=== PATIENT | female | born 1935 ===

== ENCOUNTER 2018-06-26 04:24 | Inpatient (IN) | payer MEDICARE, MEDICAID ==
--- NOTE | 2018-06-26 04:36 | C.PDOC ---
History Of Present Illness As per daughter, pt was at baseline around 2AM. Pt is with severe dementia, nonverbal. Daugther heard a scream captain/check airman, and found the patient, shaking"foaming at the mouth and her arms crossed. No signs of trauma, no incontinence. There was also a question of a left facial droop. Unableto obtain any history from pt due to her condition(baseline) Time Seen by Provider: 06/26/18 04:36 History Per: Family History/Exam Limitations: clinical condition Onset/Duration Of Symptoms: Hrs (3) Current Symptoms Are (Timing): Better Severity: Mild Pain Scale Rating Of: 2 Reports Recently: Seen In ED, Treated By A Physician Recent travel outside of the [place]: No Additional History Per: Family Past Medical History Reviewed: Historical Data, Nursing Documentation, Vital Signs Family History: States: No Known Family Hx Review Of Systems Review Of Systems: ROS cannot be obtained secondary to pt's inabilty to answer questions. Physical Exam - Physical Exam Appears: No Acute Distress Skin: Warm, Dry Head: Normacephalic Eye(s): bilateral: Normal Inspection Oral Mucosa: Dry Neck: Supple Chest: Symmetrical Cardiovascular: Rhythm Regular Respiratory: Rales, Rhonchi, No Wheezing Gastrointestinal/Abdominal: Soft, No Tenderness, No Distention Back: No CVA Tenderness Extremity: No Tenderness Extremity: Bilateral: Atraumatic Neurological/Psych: Other (pt with severe dementia, non verbal) Disoriented To: Person, Place, Time, Situation Gait: Unable To Assess ED Course And Treatment - Laboratory Results Result Diagrams: 06/26/18 05:37 06/26/18 05:37 ECG: Interpreted By Me, Viewed By Me ECG Rhythm: Sinus Rhythm (98), Nonspecific Changes Pulse Ox Interpretation: Normal - Radiology CXR: Interpreted by Me, Viewed By Me NIHSS Stroke Scale - Date/Time Evaluation Performed Date Performed: 06/26/18 Time Performed: 04:30 When Was NIHSS Performed: Baseline - How Severe is the Stroke Level of Consciousness: 0=Alert LOC to Questions: 0=Both comments correct (pt non verbal) LOC to commands: 2=Neither correct (demented/baselinie) Best Gaze: 0=Normal Visual: 0=No visual loss Facial: 1=Minor asymmetry Motor Arm - Left: 0=No drift Motor Arm - Right: 0=No drift Motor Leg - Left: 0=No drift Motor Leg - Right: 0=No drift Limb Ataxia: 0=Absent Sensory: 0=Normal Best Language: 3=Mute Dysarthia: 2=Severe, near unintelligible or worse (mute) Extinction & Inattention (Neglect): 0=Normal, no object Score: 8 rTPA Inclusion/Exclusion - Refusal of Treatment Patient Refused Treatment: No - Inclusion Criteria for Altepase All of the below criteria for inclusion were reviewed: Yes Patient is 18 years or Older: Yes The Clinical Diagnosis of Ischemic Stroke That is Causing a Potentially Disabl ing Neurological Deficit: No Time of Onset is Well Established to be Less Than 270 Minute Before Treatment Would Begin: Yes Risk/Benefit Discussed With Patient/Family Member Present: Yes - Exclusion Criteria for Altepase Current Intracranial Hemorrhage: No Subarachnoid hemorrhage: No Active Internal Bleeding: No Recent (within 3 months) Intracranial or Intraspinal Surgery: No Presence of intracranial conditions that may increase the risk of bleeding: Not Applicable Current Severe Uncontrolled Hypertension: No - Warning to TPA With Conditions Following Conditions Weighed Against Anticipated Benefit: Yes Condition: Advanced age with poor baseline function Disposition Discussed With DrRoberto: Harpal Washington Comment: accepted the pt onher service and took over the carea at 5:43AM Doctor Will See Patient In The: ED Counseled Patient/Family Regarding: Studies Performed, Diagnosis - Disposition Disposition: HOSPITALIZED Disposition Time: 04:36 Condition: FAIR - POA Present On Arrival: None - Clinical Impression Clinical Impression: Seizure, TIA (transient ischemic attack), Dementia Decision To Admit - Pt Status Changed To: Hospital Disposition Of: Inpatient - Admit Certification Admit to Inpatient:: After my assessment, the patient will require hospitalization for at least two midnights. This is because of the severity of symptoms shown, intensity of services needed, and/or the medical risk in this patient being treated as an outpatient. - InPatient: Physician Admission Certification: I certify that this patient requires 2 or more midnights of care for the following reason:: After my assessment, the patient will require hospitalization for at least two midnights. This is because of the severity of symptoms shown, intensity of services needed, and/or the medical risk in this patient being treated as an outpatient. - . Bed Request Type: Telemetry Admitting Physician: Harpal Washington Patient Diagnosis: Seizure, TIA (transient ischemic attack), Dementia
[2018-06-26 04:38] VITALS: BMI 22.4
[2018-06-26] MEDS ORDERED: Iodixanol 320 mg/ml 150 ml Bottle IV ONE (05:06)
[2018-06-26 05:44] LABS: BASO % 0.2 % (0.0-2.0); EOS # 0.1 K/uL (0.0-0.7); EOS % 0.9 % (0.0-4.0); HEMOGLOBIN 12.8 g/dL (11.0-16.0); LYMPH # 0.9 K/uL (1.0-4.3); LYMPH % 9.5 % (20.0-40.0); MEAN CORPUSCULAR HEMOGLOBIN 33.7 pg (27.0-31.0); MEAN PLATELET VOLUME 8.1 fL (7.2-11.7); MONO # 0.2 K/uL (0.0-0.8); MONO % 2.6 % (0.0-10.0); NEUT # 8.1 K/uL (1.8-7.0); NEUT % 86.8 % (50.0-75.0); PLATELET COUNT 234 K/uL (130-400); RBC 3.81 Mil/uL (3.80-5.20); RED CELL DISTRIBUTION WIDTH 12.3 % (11.5-14.5); WHITE BLOOD COUNT 9.3 K/uL (4.8-10.8)
[2018-06-26 05:50] LABS: PARTIAL THROMBOPLASTIN TIME 22.9 SECONDS (21-34); PROTHROMBIN TIME 10.9 SECONDS (9.7-12.2)
[2018-06-26 05:55] LABS: ALB/GLOB RATIO 1.2 (1.0-2.1); ALBUMIN 3.5 g/dL (3.5-5.0); BLOOD UREA NITROGEN 9 mg/dL (7-17); CALCIUM 8.9 mg/dl (8.6-10.4); GFR NON-AFRICAN AMERICAN > 60; HDL CHOLESTEROL 43 mg/dL (30-70)
[2018-06-26 06:06] LABS: LDL CHOLESTEROL 56 mg/dL (0-129)
[2018-06-26 06:13] LABS: ALT/SGPT 17 U/L (9-52); AST/SGOT 23 U/L (14-36)
[2018-06-26] MEDS ORDERED: Glucagon Recombinant 1 mg Inj IM PRN (07:12)
[2018-06-26] MEDS ORDERED: Dextrose 50% SYRINGE Inj (50 ml) IVP PRN (07:12)
--- NOTE | 2018-06-26 07:18 | CP.PCM.HP ---
<Yosvany Lehman - Last Filed: 06/26/18 16:07> History of Present Illness - History of Present Illness History of Present Illness: Medicine History and Physical for Hospitalist Service, Dr. Fowler 82 y o female with PMhx DM2, HTN, HLD, dementia, who presented to the ED [facility] for stroke-like symptoms. Pt is a poor historian 2/2 dementia and non-verbal status, so much of history was provided by pts daughter over telephone conversation. Pts daughter states that last known baseline status of patient was at 2:00 am this morning. States she awoke from sleep after hearing pt scream, went to pts bedside and found pt foaming at mouth, blood in mouth 2/2 possibly biting her tongue, and demonstrating twisting-like movements with her body. Pts daughter also noticed at time that pt had new-onset L-sided facial droop. Pts daughter immediately called 911 and pt was thus brought to the ED. Denies hx of this ever occuring before. Pt has been living at home with daughter for past 3 years. Denies any recent hospitalizations or falls. Denies recent URI symptoms or pt being sick recently with a cold. Pt is usually helped by home health aide during the day until pts daughter comes home from work at night. Pt is unable to ambulate at baseline and needs assistance ambulating around home. P t also has hx of urinary incontinence and wears diapers. Pts daughter denies pt c/o chest pain, sob, n/v/d/c, abd pain, or other symptoms. Denies foul-smelling urine or stool. Pt is also only able to eat puree-like foods at home as per pts daughter, states she sometimes gets food stuck in her cheeks. PMhx: as noted above PSurgHx: PARISH BSO (performed many years ago as per pt's daughter 2/2 uterine cancer) Allergies: NKDA Home meds: reviewed in MAR Fam hx: significant for MD and stroke Soc hx: Denies smoking, EtOH or illicit drug use. Lives at home with daughter and . is currently a patient at [facility] Has home health aide with her during the day until pt's daughter comes home from work at 6:00 pm. Pharmacy: Mail-order PMD: Dr. Lopez Present on Admission - Present on Admission Any Indicators Present on Admission: No History of DVT/PE: No History of Uncontrolled Diabetes: No Urinary Catheter: No Decubitus Ulcer Present: No Review of Systems - Review of Systems Systems not reviewed;Unavailable: Dementia Past Patient History - Past Social History Smoking Status: Never Smoked - CARDIAC Hx Hypercholesterolemia: Yes Hx Hypertension: Yes - NEUROLOGICAL Hx Dementia: Yes - ENDOCRINE/METABOLIC Hx Diabetes Mellitus Type 2: Yes - PSYCHIATRIC Hx Substance Use: No - ANESTHESIA Hx Anesthesia: No Meds Allergies/Adverse Reactions: Allergies Allergy/AdvReac Type Severity Reaction Status Date / Time No Known Allergies Allergy Verified 06/26/18 04:38 Physical Exam - Constitutional Appears: Non-toxic, No Acute Distress, Confused - Head Exam Head Exam: ATRAUMATIC, NORMOCEPHALIC - Eye Exam Eye Exam: EOMI, Normal appearance, PERRL - ENT Exam ENT Exam: Mucous Membranes Moist, Normal Oropharynx - Respiratory Exam Respiratory Exam: Clear to Auscultation Bilateral, NORMAL BREATHING PATTERN. absent: Rales, Rhonchi, Wheezes - Cardiovascular Exam Cardiovascular Exam: +S1, +S2. absent: Gallop, Rubs, Systolic Murmur - GI/Abdominal Exam GI & Abdominal Exam: Normal Bowel Sounds, Soft. absent: Distended, Organomegaly, Tenderness - Extremities Exam Extremities exam: Positive for: normal capillary refill, normal inspection, pedal pulses present. Negative for: joint swelling, pedal edema - Neurological Exam Neurological exam: Alert, Altered Additional comments: Unable to perform full neuro exam due to pt being non-cooperative; AAOx1 - Skin Skin Exam: Dry, Intact, Warm Results - Vital Signs Recent Vital Signs: Last Vital Signs Temp 97.4 F L 06/26/18 06:40 Pulse 92 H 06/26/18 06:40 Resp 20 06/26/18 06:40 BP 164/74 H 06/26/18 06:40 Pulse Ox 97 06/26/18 06:40 - Labs Result Diagrams: 06/26/18 05:37 06/26/18 05:37 Labs: Laboratory Results - last 24 hr 06/26/18 06/26/18 06/26/18 04:31 05:37 05:37 WBC 9.3 RBC 3.81 Hgb 12.8 Hct 38.8 MCV 102.0 H D MCH 33.7 H MCHC 33.0 RDW 12.3 Plt Count 234 MPV 8.1 Neut % (Auto) 86.8 H Lymph % (Auto) 9.5 L [place] % (Auto) 2.6 Eos % (Auto) 0.9 Baso % (Auto) 0.2 Neut # (Auto) 8.1 H Lymph # (Auto) 0.9 L [place] # (Auto) 0.2 Eos # (Auto) 0.1 Baso # (Auto) 0.0 PT 10.9 INR 1.0 APTT 22.9 Sodium Potassium Chloride Carbon Dioxide Anion Gap BUN Creatinine Est GFR ( Amer) Est GFR (Non-Af Amer) POC Glucose (mg/dL) 241 H Random Glucose Hemoglobin A1c Calcium Total Bilirubin AST ALT Alkaline Phosphatase Troponin I Total Protein Albumin Globulin Albumin/Globulin Ratio Triglycerides Cholesterol LDL Cholesterol Direct HDL Cholesterol 06/26/18 06/26/18 05:37 05:40 WBC RBC Hgb Hct MCV MCH MCHC RDW Plt Count MPV Neut % (Auto) Lymph % (Auto) [place] % (Auto) Eos % (Auto) Baso % (Auto) Neut # (Auto) Lymph # (Auto) [place] # (Auto) Eos # (Auto) Baso # (Auto) PT INR APTT Sodium 135 Potassium 3.8 Chloride 104 Carbon Dioxide 20 L Anion Gap 14 BUN 9 Creatinine 0.5 L Est GFR ( Amer) > 60 Est GFR (Non-Af Amer) > 60 POC Glucose (mg/dL) Random Glucose 239 H D Hemoglobin A1c 6.7 H Calcium 8.9 Total Bilirubin 0.5 AST 23 ALT 17 Alkaline Phosphatase 48 Troponin I < 0.0120 Total Protein 6.4 Albumin 3.5 D Globulin 2.9 Albumin/Globulin Ratio 1.2 Triglycerides 77 D Cholesterol 105 LDL Cholesterol Direct 56 HDL Cholesterol 43 Assessment & Plan - Assessment and Plan (Free Text) Assessment: 82 y o female with PMhx DM2, HTN, HLD, dementia, who presented to the ED BiB[facility]S for stroke-like symptoms. Code Stroke was called. Neurology (Dr. De) consulted. R/o stroke vs. seizure as etiology of symptoms. Plan: AMS, Code Stroke, r/o seizure -CT head: No acute intracranial hemorrhage. Chronic microvascular ischemic change. Small lacunar infarcts in the R caudate head and freya. Diffuse generalized parenchymal atrophy. -MRI brain pending -CTA head/neck: unremarkable -Echo done, f/u results -Dr. De (Neurology) consulted, recs appreciated -1 hr EEG done at bedside, f/u results -Keppra 500 mg IVPB bid -Pending TSH, T4, B12, folate, RPR -C/w statin therapy -Home BP med held on admission -ASA loading dose -Was not eligible for tPA due to being outside of window for therapy and due to age -NIHSS 8 -EKG on admission: NSR at 97 bpm, prolonged QT -Seizure, aspiration precautions Hx dementia -C/w Memantine daily -Risperidone held on admission 2/2 prolonged QT Hx HLD -C/w statin therapy -Lipid panel ordered Hx DM2 -Home med Janumet held on admission -Fingersticks achs -Hypoglycemic protocol -A1c ordered Hx HTN -BP meds held on admission -Cont to trend PPX: -DVT: Lovenox -GI: n/a -Diet: Pureed with thin liquids -Palliative Care consulted re. goals of care/POLST form, recs appreciated Contact # for Patient's daughter, Ying Lo: Pt seen, examined with, and plan discussed with Dr. Fowler, attending physician. Yosvany Lehman DO PGY-1, Director Of Officiating Pager #[phone] NIHSS Scale Date Performed: 06/26/18 Time Performed: 07:45 When Was NIHSS Performed: Reevaluation Level of Consciousness: 1=Drowsy LOC to Questions: 2=Answers neither correct LOC to commands: 2=Performs task neither correctly Best Gaze: 0=Normal Visual: 0=No visual loss Facial: 1=Minor asymmetry Motor Arm - Left: UN - Untestable; Amputation or joint fusion Motor Arm - Right: UN - Untestable; Amputation or joint fusion Motor Leg - Left: UN - Untestable; Amputation or joint fusion Motor Leg - Right: UN - Untestable; Amputation or joint fusion Limb Ataxia: UN - Untestable; Amputation or joint fusion Sensory: 0=Normal Best Language: 0=No aphasia Dysarthria: UN - Untestable; Intubation or other physical barrier Extinction & Inattention (Neglect): 0=Normal, no object Score: 6 <Hina Fowler V - Last Filed: 06/26/18 23:24> Results - Vital Signs Recent Vital Signs: Last Vital Signs Temp 978 F H 06/26/18 15:00 Pulse 80 06/26/18 22:39 Resp 18 06/26/18 15:00 BP 169/78 H 06/26/18 22:39 Pulse Ox 97 06/26/18 15:00 - Labs Result Diagrams: 06/26/18 05:37 06/26/18 05:37 Labs: Laboratory Results - last 24 hr 06/26/18 06/26/18 06/26/18 04:31 05:37 05:37 WBC 9.3 RBC 3.81 Hgb 12.8 Hct 38.8 MCV 102.0 H D MCH 33.7 H MCHC 33.0 RDW 12.3 Plt Count 234 MPV 8.1 Neut % (Auto) 86.8 H Lymph % (Auto) 9.5 L [place] % (Auto) 2.6 Eos % (Auto) 0.9 Baso % (Auto) 0.2 Neut # (Auto) 8.1 H Lymph # (Auto) 0.9 L [place] # (Auto) 0.2 Eos # (Auto) 0.1 Baso # (Auto) 0.0 Neutrophils % (Manual) 86 H Band Neutrophils % 1 Lymphocytes % (Manual) 11 L Monocytes % (Manual) 2 Platelet Estimate Normal Large Platelets Present [place] Cells Slight PT 10.9 INR 1.0 APTT 22.9 Sodium Potassium Chloride Carbon Dioxide Anion Gap BUN Creatinine Est GFR ( Amer) Est GFR (Non-Af Amer) POC Glucose (mg/dL) 241 H Random Glucose Hemoglobin A1c Calcium Total Bilirubin AST ALT Alkaline Phosphatase Troponin I Total Protein Albumin Globulin Albumin/Globulin Ratio Triglycerides Cholesterol LDL Cholesterol Direct HDL Cholesterol Vitamin B12 Folate Free T4 TSH 3rd Generation RPR Blood Type Antibody Screen 06/26/18 06/26/18 06/26/18 05:37 05:37 05:40 WBC RBC Hgb Hct MCV MCH MCHC RDW Plt Count MPV Neut % (Auto) Lymph % (Auto) [place] % (Auto) Eos % (Auto) Baso % (Auto) Neut # (Auto) Lymph # (Auto) [place] # (Auto) Eos # (Auto) Baso # (Auto) Neutrophils % (Manual) Band Neutrophils % Lymphocytes % (Manual) Monocytes % (Manual) Platelet Estimate Large Platelets [place] Cells PT INR APTT Sodium 135 Potassium 3.8 Chloride 104 Carbon Dioxide 20 L Anion Gap 14 BUN 9 Creatinine 0.5 L Est GFR ( Amer) > 60 Est GFR (Non-Af Amer) > 60 POC Glucose (mg/dL) Random Glucose 239 H D Hemoglobin A1c 6.7 H Calcium 8.9 Total Bilirubin 0.5 AST 23 ALT 17 Alkaline Phosphatase 48 Troponin I < 0.0120 Total Protein 6.4 Albumin 3.5 D Globulin 2.9 Albumin/Globulin Ratio 1.2 Triglycerides 77 D Cholesterol 105 LDL Cholesterol Direct 56 HDL Cholesterol 43 Vitamin B12 Folate Free T4 TSH 3rd Generation RPR Blood Type A NEGATIVE Antibody Screen Negative 06/26/18 06/26/18 06/26/18 09:28 11:39 13:50 WBC RBC Hgb Hct MCV MCH MCHC RDW Plt Count MPV Neut % (Auto) Lymph % (Auto) [place] % (Auto) Eos % (Auto) Baso % (Auto) Neut # (Auto) Lymph # (Auto) [place] # (Auto) Eos # (Auto) Baso # (Auto) Neutrophils % (Manual) Band Neutrophils % Lymphocytes % (Manual) Monocytes % (Manual) Platelet Estimate Large Platelets Jose Antonio Cells PT INR APTT Sodium Potassium Chloride Carbon Dioxide Anion Gap BUN Creatinine Est GFR ( Amer) Est GFR (Non-Af Amer) POC Glucose (mg/dL) 146 H 131 H Random Glucose Hemoglobin A1c 6.7 H Calcium Total Bilirubin AST ALT Alkaline Phosphatase Troponin I Total Protein Albumin Globulin Albumin/Globulin Ratio Triglycerides Cholesterol LDL Cholesterol Direct HDL Cholesterol Vitamin B12 Folate Free T4 TSH 3rd Generation RPR Blood Type Antibody Screen 06/26/18 06/26/18 06/26/18 13:50 13:50 13:50 WBC RBC Hgb Hct MCV MCH MCHC RDW Plt Count MPV Neut % (Auto) Lymph % (Auto) [place] % (Auto) Eos % (Auto) Baso % (Auto) Neut # (Auto) Lymph # (Auto) [place] # (Auto) Eos # (Auto) Baso # (Auto) Neutrophils % (Manual) Band Neutrophils % Lymphocytes % (Manual) Monocytes % (Manual) Platelet Estimate Large Platelets Jose Antonio Cells PT INR APTT Sodium Potassium Chloride Carbon Dioxide Anion Gap BUN Creatinine Est GFR ( Amer) Est GFR (Non-Af Amer) POC Glucose (mg/dL) Random Glucose Hemoglobin A1c Calcium Total Bilirubin AST ALT Alkaline Phosphatase Troponin I Total Protein Albumin Globulin Albumin/Globulin Ratio Triglycerides Cholesterol LDL Cholesterol Direct HDL Cholesterol Vitamin B12 541 Folate 17.7 Free T4 1.06 TSH 3rd Generation 1.31 RPR Nonreactive Blood Type Antibody Screen Attending/Attestation - Attestation I have personally seen and examined this patient.: Yes I have fully participated in the care of the patient.: Yes I have reviewed all pertinent clinical information: Yes Notes (Text): Patient seen, examined and case discussed with medical device sales representative. Unable to history from patient given clinical condition. Resident has spoken with the daughter over the phone to ilict history. Daughter is the primary caregiver for the patient and her . Patient at home usually with daily caregiver from 9-5 with daughter takes over. per ED triage, 2am, noted patient was foaming at the mouth with associated body movements. Per daughter, patient is nonverbal at baseline, and bedbound. Noted to also be urine incontinent. Patient does speak a few words and needs assistance to each. Patient has had severe dementia, since diagnoses about 3 years ago. 1) New onset Seizure History of Dementia Assessment/Plan * Code stroke 06/26/18 * Neurology Dr. De on board help appreciated * CT head (06/26/18): No acute intracranial hemorrhage. Chronic microvascular ischemic change. Small lacunar infarcts in the R caudate head and freya. Diff use generalized parenchymal atrophy.- * MRI brain (06/26/18): pending; noted discussed with nursing staff, patient agitated requires some sedation given Ativan0.5mg IV X1 * CTA head/neck (06/26/18): unremarkable * Echo done, f/u results * Ordered for 1 hr EEG done; completed in EEG lab today * Per neurology, started Keppra 500 mg IVPB bid * Pending TSH, T4, B12, folate, RPR * C/w statin therapy * Home BP med held on admission; will monitor for 24 hours; prior to restart BP medications * ASA loading dose * Per ED note: Was not eligible for tPA due to being outside of window for therapy and due to age * Neurochecks * Seizure precautions * Aspiration precautions * ASA 300mg GA given * NS 100cc/hr 2) Hx dementia Assessment/Plan * c/w with Memantine * held Respirdal given prolonged QT 3) Hx HLD Assessment/Plan * C/w statin therapy * Lipid panel ordered 4) Hx DM2 * Home med Janumet held on admission * Fingersticks achs * Hypoglycemic protocol * A1c ordered 5) Hx HTN * BP meds held on admission * Cont to trend 6) PPX: * DVT: Lovenox 40mg subq dailu * GI: n/a * Swallow eval; npo given facial droop; recommended for Pureed with thin liquids * Palliative Care consulted re. goals of care/POLST form, recs appreciated * Please note patient's is also admitted; Patient's daughter Ying Lo:
--- NOTE | 2018-06-26 07:53 | CT ---
Date of service: 06/26/2018 PROCEDURE: CT HEAD WITHOUT CONTRAST. HISTORY: Code Stroke COMPARISON: None available. TECHNIQUE: Axial computed tomography images were obtained through the head/brain without intravenous contrast. Radiation dose: Total exam DLP = 924.1 mGy-cm. This CT exam was performed using one or more of the following dose reduction techniques: Automated exposure control, adjustment of the mA and/or kV according to patient size, and/or use of iterative reconstruction technique. FINDINGS: HEMORRHAGE: No intracranial hemorrhage. BRAIN: No mass effect or edema. Scattered focal lucencies in the subcortical and periventricular white matter suggestive for chronic microvascular ischemic change. Diffuse generalized parenchymal atrophy. Right caudate head lacunar infarct. Small hypodensity in the freya which may represent a small lacunar infarct. VENTRICLES: Unremarkable. No hydrocephalus. CALVARIUM: Unremarkable. Chronic deformity of the left nasal bone. PARANASAL SINUSES: Unremarkable as visualized. No significant inflammatory changes. MASTOID AIR CELLS: Unremarkable as visualized. No inflammatory changes. OTHER FINDINGS: Intracranial arterial calcifications. Fullness in the intrasellar region, nonspecific. Clinical correlation. IMPRESSION: No acute intracranial hemorrhage. Chronic microvascular ischemic change. Small lacunar infarcts in the right caudate head and freya. Diffuse generalized parenchymal atrophy. If symptoms persists, consider correlation with MRI. A preliminary report was generated at 4:57 a.m. on 06/26/[address] Hawa Napoles from [facility].
[2018-06-26 08:32] LABS: BANDS 1 % (0-2); LYMPHOCYTE 11 % (20-40); MONOCYTE 2 % (0-10); NEUTROPHIL 86 % (50-75); PLATELET ESTIMATE NORMAL (NORMAL); TOTAL CELLS COUNTED 100
[2018-06-26 08:33] LABS: BURR CELLS SLIGHT; LARGE PLATELETS PRESENT
[2018-06-26] MEDS ORDERED: levETIRAcetam 1,000 MG in Sodium Chloride 0.9% 100 ML IVPB ONE (09:00)
[2018-06-26] MEDS: Sodium Chloride 0.9% 1,000 ML IV SCH ×2 (09:19→16:08)
--- NOTE | 2018-06-26 10:26 | RAD ---
Date of service: 06/26/2018 HISTORY: Code Stroke COMPARISON: No prior. FINDINGS: LUNGS: Hyperinflation suggestive for COPD and or emphysematous changes. Right upper lobe granulomatous changes. Small nodular density in the right suprahilar region likely represents vessel on end. PLEURA: No significant pleural effusion identified, no pneumothorax apparent. CARDIOVASCULAR: Atherosclerotic calcification at the aortic knob. Tortuous ectatic aorta. Normal cardiac size. OSSEOUS STRUCTURES: Degenerative changes in the spine and shoulders. VISUALIZED UPPER ABDOMEN: Normal. OTHER FINDINGS: None. IMPRESSION: Hyperinflation suggestive for COPD and or emphysematous changes. Right upper lobe granulomatous changes. Small nodular density in the right suprahilar region likely represents vessel on end.
[2018-06-26] MEDS: levETIRAcetam 500 MG in Sodium Chloride 0.9% 100 ML IVPB SCH ×2 (11:46→21:16)
[2018-06-26] MEDS: Enoxaparin 40 mg Syringe SC SCH (11:50)
--- NOTE | 2018-06-26 12:20 | CT ---
Date of service: 06/26/2018 PROCEDURE: CT Angiography of the Brain. HISTORY: ? facial droop COMPARISON: None available. TECHNIQUE: CT angiography of the intracranial arteries was performed. Coronal and sagittal maximum intensity projection reformated images were generated. Radiation dose: Total exam DLP = 433.85 mGy-cm. This CT exam was performed using one or more of the following dose reduction techniques: Automated exposure control, adjustment of the mA and/or kV according to patient size, and/or use of iterative reconstruction technique. FINDINGS: INTERNAL CEREBRAL ARTERIES: Unremarkable. The skull base, petrous, cavernous and supraclinoid segments are bilaterally widely patent. ANTERIOR CEREBRAL ARTERIES: Unremarkable. A1 and A2 segments are widely patent. Smaller distal branches unremarkable, as visualized. MIDDLE CEREBRAL ARTERIES: Unremarkable. M1 and M2 segments are widely patent. Perisylvian branches grossly symmetric. POSTERIOR CIRCULATION: Basilar Artery: Unremarkable. Distal Vertebral Arteries: Unremarkable. Posterior Cerebral Arteries: Unremarkable. Posterior Inferior Cerebellar Arteries: Unremarkable. ANEURYSM/ VASCULAR MALFORMATIONS: None. OTHER FINDINGS: None. IMPRESSION: Unremarkable CT Angiography of the Brain. Date of service: 06/26/2018 PROCEDURE: CT Angiography of the neck with contrast HISTORY: ? facial droop COMPARISON: None. TECHNIQUE: Contiguous axial images of the neck were obtained from the level of the skull-base to the superior mediastinum in the arteriographic phase of enhancement. Coronal and sagittal reformats or also generated. IV contrast dose: Radiation dose: Total exam DLP = 433.85 mGy-cm. This CT exam was performed using one or more of the following dose reduction techniques: Automated exposure control, adjustment of the mA and/or kV according to patient size, and/or use of iterative reconstruction technique. FINDINGS: RIGHT CAROTID ARTERIES: Common Carotid Artery: Normal. Carotid Bifurcation: Normal. Internal Carotid Artery:Mild plaque formation. External Carotid Artery (proximal branches): Normal. LEFT CAROTID ARTERIES: Common Carotid Artery: Normal. Carotid Bifurcation: Normal. Internal Carotid Artery:Mild plaque formation. External Carotid Artery (proximal branches): Normal. VERTEBRAL ARTERIES: Right Vertebral Artery: Normal. Left Vertebral Artery: Normal. OTHER FINDINGS: no aortic atherosclerotic calcification or mural plaque present. IMPRESSION: No high-grade stenosis.
--- NOTE | 2018-06-26 14:15 | CP.PCM.PCO ---
Physician Communication Note - Physician Communication Note Physician Communication Note: Family meeting at 8 am tomorrow
[2018-06-26 15:30] LABS: FOLATE 17.7 ng/mL
--- NOTE | 2018-06-26 22:33 | CP.PCM.CON ---
History of Present Illness - History of Present Illness History of Present Illness: Neurology consult dictated. MIss Kenyon is an 82 yr old woman who most likely had a seizure. She has dementia which is severe, and will need AED. Start IV depakote at 1000 mg iV now and 500 mg bid. EEG Thank you Dr. mccartney Neurology #[id number] number Past Patient History - Past Medical History & Family History Past Medical History?: Yes - Past Social History Smoking Status: Never Smoked - CARDIAC Hx Hypercholesterolemia: Yes Hx Hypertension: Yes - NEUROLOGICAL Hx Dementia: Yes - ENDOCRINE/METABOLIC Hx Diabetes Mellitus Type 2: Yes - MUSCULOSKELETAL/RHEUMATOLOGICAL Hx Falls: No - PSYCHIATRIC Hx Substance Use: No - ANESTHESIA Hx Anesthesia: No Meds Allergies/Adverse Reactions: Allergies Allergy/AdvReac Type Severity Reaction Status Date / Time No Known Allergies Allergy Verified 06/26/18 04:38 - Medications Medications: Current Medications Aspirin (Aspirin Chewable) 81 mg PO DAILY KATHLEEN Dextrose (Dextrose 50% Inj) 0 ml IVP .STAT PRN; Protocol PRN Reason: Hypoglycemia Protocol Dextrose (Glutose 15) 0 gm PO .ONCE PRN; Protocol PRN Reason: Hypoglycemia Protocol Enoxaparin Sodium (Lovenox) 40 mg SC DAILY [facility] Last Admin: 06/26/18 11:50 Dose: 40 mg Glucagon (Glucagen Diagnostic Kit) 0 mg IM .STAT PRN; Protocol PRN Reason: Hypoglycemia Protocol Sodium Chloride (Sodium Chloride 0.9%) 1,000 mls @ 100 mls/hr IV .Q10H [facility] Last Admin: 06/26/18 16:08 Dose: Not Given Dextrose (Dextrose 5% In Water 1000 Ml) 1,000 mls @ 0 mls/hr IV .Q0M PRN; Protocol PRN Reason: Hypoglycemia Protocol Levetiracetam 500 mg/ Sodium (Chloride) 105 mls @ 420 mls/hr IVPB Q12H KATHLEEN Last Admin: 06/26/18 21:16 Dose: 420 mls/hr Memantine (Namenda) 10 mg PO HS KATHLEEN Last Admin: 06/26/18 21:16 Dose: 10 mg Rosuvastatin Calcium (Crestor) 5 mg PO HS KATHLEEN Last Admin: 06/26/18 21:16 Dose: 5 mg Results - Vital Signs Recent Vital Signs: Last Vital Signs Temp 978 F H 06/26/18 15:00 Pulse 80 06/26/18 18:10 Resp 18 06/26/18 15:00 BP 183/95 H 06/26/18 18:10 Pulse Ox 97 06/26/18 15:00 - Labs Result Diagrams: 06/26/18 05:37 06/26/18 05:37 Labs: Laboratory Results - last 24 hr 06/26/18 06/26/18 06/26/18 04:31 05:37 05:37 WBC 9.3 RBC 3.81 Hgb 12.8 Hct 38.8 MCV 102.0 H D MCH 33.7 H MCHC 33.0 RDW 12.3 Plt Count 234 MPV 8.1 Neut % (Auto) 86.8 H Lymph % (Auto) 9.5 L Mineral % (Auto) 2.6 Eos % (Auto) 0.9 Baso % (Auto) 0.2 Neut # (Auto) 8.1 H Lymph # (Auto) 0.9 L Mineral # (Auto) 0.2 Eos # (Auto) 0.1 Baso # (Auto) 0.0 Neutrophils % (Manual) 86 H Band Neutrophils % 1 Lymphocytes % (Manual) 11 L Monocytes % (Manual) 2 Platelet Estimate Normal Large Platelets Present Jose Antonio Cells Slight PT 10.9 INR 1.0 APTT 22.9 Sodium Potassium Chloride Carbon Dioxide Anion Gap BUN Creatinine Est GFR ( Amer) Est GFR (Non-Af Amer) POC Glucose (mg/dL) 241 H Random Glucose Hemoglobin A1c Calcium Total Bilirubin AST ALT Alkaline Phosphatase Troponin I Total Protein Albumin Globulin Albumin/Globulin Ratio Triglycerides Cholesterol LDL Cholesterol Direct HDL Cholesterol Vitamin B12 Folate Free T4 TSH 3rd Generation RPR Blood Type Antibody Screen 06/26/18 06/26/18 06/26/18 05:37 05:37 05:40 WBC RBC Hgb Hct MCV MCH MCHC RDW Plt Count MPV Neut % (Auto) Lymph % (Auto) Mineral % (Auto) Eos % (Auto) Baso % (Auto) Neut # (Auto) Lymph # (Auto) Mineral # (Auto) Eos # (Auto) Baso # (Auto) Neutrophils % (Manual) Band Neutrophils % Lymphocytes % (Manual) Monocytes % (Manual) Platelet Estimate Large Platelets Jose Antonio Cells PT INR APTT Sodium 135 Potassium 3.8 Chloride 104 Carbon Dioxide 20 L Anion Gap 14 BUN 9 Creatinine 0.5 L Est GFR ( Amer) > 60 Est GFR (Non-Af Amer) > 60 POC Glucose (mg/dL) Random Glucose 239 H D Hemoglobin A1c 6.7 H Calcium 8.9 Total Bilirubin 0.5 AST 23 ALT 17 Alkaline Phosphatase 48 Troponin I < 0.0120 Total Protein 6.4 Albumin 3.5 D Globulin 2.9 Albumin/Globulin Ratio 1.2 Triglycerides 77 D Cholesterol 105 LDL Cholesterol Direct 56 HDL Cholesterol 43 Vitamin B12 Folate Free T4 TSH 3rd Generation RPR Blood Type A NEGATIVE Antibody Screen Negative 06/26/18 06/26/18 06/26/18 09:28 11:39 13:50 WBC RBC Hgb Hct MCV MCH MCHC RDW Plt Count MPV Neut % (Auto) Lymph % (Auto) Mineral % (Auto) Eos % (Auto) Baso % (Auto) Neut # (Auto) Lymph # (Auto) Mineral # (Auto) Eos # (Auto) Baso # (Auto) Neutrophils % (Manual) Band Neutrophils % Lymphocytes % (Manual) Monocytes % (Manual) Platelet Estimate Large Platelets [place] Cells PT INR APTT Sodium Potassium Chloride Carbon Dioxide Anion Gap BUN Creatinine Est GFR ( Amer) Est GFR (Non-Af Amer) POC Glucose (mg/dL) 146 H 131 H Random Glucose Hemoglobin A1c 6.7 H Calcium Total Bilirubin AST ALT Alkaline Phosphatase Troponin I Total Protein Albumin Globulin Albumin/Globulin Ratio Triglycerides Cholesterol LDL Cholesterol Direct HDL Cholesterol Vitamin B12 Folate Free T4 TSH 3rd Generation RPR Blood Type Antibody Screen 06/26/18 06/26/18 06/26/18 13:50 13:50 13:50 WBC RBC Hgb Hct MCV MCH MCHC RDW Plt Count MPV Neut % (Auto) Lymph % (Auto) Mineral % (Auto) Eos % (Auto) Baso % (Auto) Neut # (Auto) Lymph # (Auto) Mineral # (Auto) Eos # (Auto) Baso # (Auto) Neutrophils % (Manual) Band Neutrophils % Lymphocytes % (Manual) Monocytes % (Manual) Platelet Estimate Large Platelets [place] Cells PT INR APTT Sodium Potassium Chloride Carbon Dioxide Anion Gap BUN Creatinine Est GFR ( Amer) Est GFR (Non-Af Amer) POC Glucose (mg/dL) Random Glucose Hemoglobin A1c Calcium Total Bilirubin AST ALT Alkaline Phosphatase Troponin I Total Protein Albumin Globulin Albumin/Globulin Ratio Triglycerides Cholesterol LDL Cholesterol Direct HDL Cholesterol Vitamin B12 541 Folate 17.7 Free T4 1.06 TSH 3rd Generation 1.31 RPR Nonreactive Blood Type Antibody Screen
--- NOTE | 2018-06-27 00:44 | CARD ---
APPROVED REPORT Date of service: 06/26/2018 EXAM: Two-dimensional and M-mode echocardiogram with Doppler and color Doppler. INDICATION CVA/TIA 2D DIMENSIONS IVSd0.7 (0.7-1.1cm)LVDd3.9 (3.9-5.9cm) PWd0.8 (0.7-1.1cm)LA Qmgytp99 (18-58mL) LVDs2.5 (2.5-4.0cm)FS (%) 36.4 % LVEF (%)66.8 (>50%)LVEF (Toscano's)63.14 % IVC0.00 cm M-Mode DIMENSIONS RVDd1.88 (2.1-3.2cm)Left Atrium (MM)3.52 (2.5-4.0cm) IVSd0.76 (0.7-1.1cm)Aortic Root2.81 (2.2-3.7cm) LVDd4.59 (4.0-5.6cm)Aortic Cusp Exc.2.08 (1.5-2.0cm) PWd0.82 (0.7-1.1cm)FS (%) 46 % LVDs2.46 (2.0-3.8cm)LVEF (%)65 (>50%) Mitral Valve MV E Ogwwcoda69.0cm/sMV A Znzhkrnh871.2cm/sE/A ratio0.4 TDI Lateral E' Peak V6.35cm/sMedial E' Peak V7.32cm/sE/Lateral E'7.4 E/Medial E'6.4 Tricuspid Valve TR Peak Bsknasub662fo/sTR Peak Gr.[id number] LEFT VENTRICLE The left ventricle is normal size. There is normal left ventricular wall thickness. The left ventricular function is normal. The left ventricular ejection fraction is within the normal range. 63% No regional wall motion abnormalities noted. Transmitral Doppler flow pattern is Grade I-abnormal relaxation pattern. No left ventricle thrombus noted on this study. There is no ventricular septal defect visualized. There is no left ventricular aneurysm. There is no mass noted in the left ventricle. RIGHT VENTRICLE The right ventricle is normal size. There is normal right ventricular wall thickness. The right ventricular systolic function is normal. ATRIA The left atrium size is normal. The right atrium size is normal. The interatrial septum is intact with no evidence for an atrial septal defect. AORTIC VALVE The aortic valve is normal in structure and function. No aortic regurgitation is present. There is no aortic valvular stenosis. There is no aortic valvular vegetation. MITRAL VALVE The mitral valve is normal in structure and function. There is no evidence of mitral valve prolapse. There is no mitral valve stenosis. There is trace mitral valve regurgitation noted. TRICUSPID VALVE The tricuspid valve is normal in structure and function. There is no tricuspid valve regurgitation noted. There is no tricuspid valve prolapse or vegetation. There is no tricuspid valve stenosis. PULMONIC VALVE The pulmonary valve is normal in structure and function. There is no pulmonic valvular regurgitation. There is no pulmonic valvular stenosis. GREAT VESSELS The aortic root is normal in size. The ascending aorta is normal in size. The pulmonary artery is normal. The IVC is normal in size and collapses >50% with inspiration. PERICARDIAL EFFUSION The pericardium appears normal. There is no pleural effusion. <Conclusion> The left ventricular function is normal. The left ventricular ejection fraction is within the normal range. 63% Transmitral Doppler flow pattern is Grade I-abnormal relaxation pattern. Normal Doppler
[2018-06-27] MEDS: Sodium Chloride 0.9% 1,000 ML IV SCH ×3 (02:21→10:45)
--- NOTE | 2018-06-27 02:43 | CON ---
DATE: 06/27/2018 Neurology consultation called by Hina Fowler DO HISTORY OF PRESENT ILLNESS: Ms. Elaine Kenyon is an 82-year-old woman with past medical history of diabetes type 2, hypertension, hyperlipidemia, dementia who presented to the emergency room by EMS for symptoms of foaming at the mouth, blood in the mouth, biting her tongue, tonic-clonic movements in her body, and left-sided facial droop. There is no dysarthria, no aphasia. At baseline, the patient has severe dementia. She is unable to ambulate and need assistance and also has urinary incontinence and wearing diapers. She has a puree diet as well. REVIEW OF SYSTEMS: The review of systems is not possible due to the patient's mental status. She was not opening her eyes. She was not following commands; however, apparently this is her baseline. There is no history of epilepsy in the past. PAST MEDICAL HISTORY: As above. PAST SURGICAL HISTORY: PARISH-BSO secondary to uterine cancer. ALLERGIES: NO KNOWN DRUG ALLERGIES. FAMILY HISTORY: Significant for ME and stroke. SOCIAL HISTORY: Lives at home with daughter and . is a patient at [facility], has home health aide. PHYSICAL EXAMINATION: On exam, the patient has present bilaterally. She is not alert. She is confused. She does not follow commands, she only grunts. She is tee both her upper and lower limbs. Motor is difficult to examine; however, it appears the patient has 4/5 strength diffusely. Reflexes are quite brisk 3+ bilaterally. There is clonus in feet. Toes are upgoing bilaterally. LABORATORY DATA: As follows: CBC is relatively normal. Chemistry is only significant for increased glucose and increased HbA1C of 6.7. CAT scan was done and shows diffuse atrophy bilaterally. No strokes or infarcts. MRI of the brain was done as well and shows that there is no acute stroke or hemorrhage. IMPRESSION: This is an 82-year-old woman who most likely had new onset seizure. 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 PLAN: 1. Load with keppra 1000 mg now and attempt 500 mg bid. 2. Physical therapy and rehab hospital placement or EEG. Thank you for this consult. Our team will follow. Altaf De MD WILNER
[2018-06-27 07:42] LABS: BASO % 0.6 % (0.0-2.0); EOS % 0.1 % (0.0-4.0); HEMOGLOBIN 12.3 g/dL (11.0-16.0); LYMPH # 0.8 K/uL (1.0-4.3); LYMPH % 14.5 % (20.0-40.0); MEAN CELL VOLUME 100.1 fL (81.0-99.0); MEAN PLATELET VOLUME 8.2 fL (7.2-11.7); MONO # 0.3 K/uL (0.0-0.8); MONO % 4.9 % (0.0-10.0); NEUT # 4.6 K/uL (1.8-7.0); NEUT % 79.9 % (50.0-75.0); RBC 3.62 Mil/uL (3.80-5.20); RED CELL DISTRIBUTION WIDTH 12.3 % (11.5-14.5); WHITE BLOOD COUNT 5.8 K/uL (4.8-10.8)
[2018-06-27 08:12] LABS: ALB/GLOB RATIO 1.3 (1.0-2.1); ALBUMIN 3.7 g/dL (3.5-5.0); ALT/SGPT 18 U/L (9-52); AST/SGOT 27 U/L (14-36); BLOOD UREA NITROGEN 5 mg/dL (7-17); CALCIUM 9.2 mg/dl (8.6-10.4); GFR NON-AFRICAN AMERICAN > 60
[2018-06-27] MEDS ORDERED: Magnesium Sulfate 1 gm in D5W 1 GM/100 ML BAG IVPB ONE (09:47)
--- NOTE | 2018-06-27 09:50 | MRI ---
Date of service: 06/26/2018 PROCEDURE: MRI BRAIN WITHOUT CONTRAST HISTORY: tia, seizure COMPARISON: None available. TECHNIQUE: Multiplanar, multisequence MR images of the brain were obtained without intravenous contrast enhancement. FINDINGS: HEMORRHAGE: None DWI: No evidence of an acute or early subacute infarction. BRAIN PARENCHYMA: No mass effect or edema. Severe chronic microvascular disease. No evidence of acute infarct. Mild atrophy VENTRICLES: Unremarkable. No hydrocephalus. CRANIUM: Unremarkable. ORBITS: Grossly unremarkable. PARANASAL SINUSES/MASTOIDS: Clear VASCULAR SYSTEM: Skull base flow voids intact. OTHER FINDINGS: The report concurs with the preliminary [facility] report IMPRESSION: No acute intracranial findings
--- NOTE | 2018-06-27 10:22 | PCM.PCON ---
History of Present Illness - History of Present Illness History of Present Illness: Palliative consult requested by Doctor Ford for goals of care discussion Patient is a 82 yo admitted from home after found by her daughter with foam coming out her mouth, shaking with arms closed and left facial droop. No trauma, no incontinence occurred. Patient was last seen at her baseline around 2 am on the days of admission. In ED patient was diagnosed with TIA, seixures and dementia. Patient has a known Hx of dementia. Kepra 1000 mg Iv BID initiated. Patient resumed her home meds, including Namenda. Ct head: no acute findings, MRI suggested CXR: right upper lobe granulomatos changes Labs: WBC 9.3, Hb 12.8, HbA1C 6.7 VS: BP 147/85, afebrile, O2Sat 98% RA Meds: Kepra, Namenda, Lovenox, IVF Code: was a Full Code, no Advance Directive on chart PPS: 10 % ALL: NKA PMH: severe dementia, aphasic, DM, HTN Soc. Hx: lives at home with daughter and , came from [place] 3 years ago, has home health aid 7 hr a day plus private aid, currently admitted to hospital for COPD Fam. Hx: denied Review of Systems - Review of Systems All systems: reviewed and no additional remarkable complaints except Review of Systems: ROS unobtainable from patient due to dementia and aphasia. ROS obtained from nursing. Per nursing, patient is pocketing the food and needs max assistance with feedings. Physical Exam - Constitutional Appears: No Acute Distress, Chronically Ill - Head Exam Head Exam: ATRAUMATIC, NORMAL INSPECTION, NORMOCEPHALIC - Eye Exam Eye Exam: EOMI, Normal appearance, PERRL Pupil Exam: NORMAL ACCOMODATION, PERRL Additional comments: left facial droop - ENT Exam ENT Exam: Mucous Membranes Moist - Neck Exam Neck exam: Positive for: Normal Inspection - Respiratory Exam Respiratory Exam: Decreased Breath Sounds, Clear to Auscultation Bilateral, NORMAL BREATHING PATTERN - Cardiovascular Exam Cardiovascular Exam: Tachycardia, REGULAR RHYTHM, +S1, +S2 - GI/Abdominal Exam GI & Abdominal Exam: Normal Bowel Sounds, Soft - Rectal Exam Rectal Exam: Deferred - Extremities Exam Extremities exam: Positive for: normal inspection, pedal edema - Back Exam Back exam: NORMAL INSPECTION - Neurological Exam Neurological exam: Altered - Psychiatric Exam Psychiatric exam: Flat Affect - Skin Skin Exam: Dry, Intact, Normal Color, Warm Palliative Care Assessment - Modified MRC Dyspnea Scale Modified MRC Dyspnea Scale: Not troubled by breathlessness except on strenous exercise Grade: 1 - Pain Description Intensity of pain at present: 0 - Pete Scale Sensory Perception: Slightly Limited Moisture: Occasionally Moist Activity: Bedfast Mobility: Very Limited Nutrition: Probably Inadequate Friction & Shear: Potential Problem Total Score - Skin Risk Assessment: 13 - Psychosocial Distress Patient screened for psychosocial distress: Yes Psychosocial Intervention(s): Family assessed for psychosocial distress. Family concerned about patient's pocketing the food and need for extensive assistance. patient's is also hospitalized and family is worried about him as well. Family feels that patient would get better assistance at [facility] when discharged. We discussed it and agreed to contact SS regarding the NH placement. Family stated relief. Outcome: Resolved Palliative Care - Goals Goal(s) of care: Goals of care discussed with patient's son Constantin and daughter Ying, at the bedside. Family is very realistic in their expectations of care. Their main concern is patient's comfort. Family understands that dementia could progress and impact patient's ability to take PO nutrition. Since family would like patient placed at LTC, they understand that patient will need to be able to eat on her own in order to be admitted . if patient's nutrition becomes an issue due to dementia, family would like to consider PEG placement if suggested and tolerable for patient. If PEG placement is not suggested as a option due to patient's overal condition, [facility] Treatment Goal(s): Alleviate symptoms, Improve ADLs, Improve quality of life End of life care discussed: Yes End of life discussion: End of life care discussed. Both, son and daughter, were clear that they would not want any aggressive measures to prolong patient's life, including CPR or MV assistance. Family would consider PEG only if it becomes neccasary with intention to monitor patient's performance later on. Family is open to a Hospice care if it becomes best level of care for this patient. RAO introduced. Son signed DNR/DNI. his was shared with Jennifer GUZMAN and Doctor Fowler's residential assistant. - Plan Interdisciplinary involved: Nurse, pressroom worker, Physician Discharge planning: skilled nursing acute care (LTC placemnt with option of Hospice, based on patient's condition.) Assessment & Plan - Assessment and Plan (Free Text) Assessment: Assessment * Chronically ill lady with most recent TIA * Aphasia * Bedridden * At risk for malnutrition due to food pocketing * Lethargy * Difficulties taking PO meds due to lethargy * Family advocates for promotion of quality of life without use of aggressive interventions, except pEG if recommended by Medical team * Family would like LTC placement; [facility] or [facility] Suggestion * Promote safety * Promote skin integrity * Assist with each meal * Aspiration precautions * Evaluate for sufficient calorie intake * GI consult for PEG eval if PO nutrition not adequate * [facility] [facility] * Involve SS to assist in process of NH placement * DNR/DNI Palliative care will remain on board as needed. Advance care planing 60 min
[2018-06-27] MEDS: levETIRAcetam 500 MG in Sodium Chloride 0.9% 100 ML IVPB SCH (11:00)
[2018-06-27] MEDS: Enoxaparin 40 mg Syringe SC SCH (11:00)
--- NOTE | 2018-06-27 13:12 | CP.PCM.CON ---
<Joanna Avila - Last Filed: 06/27/18 13:12> History of Present Illness - History of Present Illness History of Present Illness: GI Fellow PGY5 Consult Note This is a 82yF with PMhx DM2, HTN, HLD, dementia, who presented to the ED for stroke-like symptoms. Pt is a poor historian 2/2 dementia and non-verbal status, so much of history was provided EMR.Pt was found to be foaming at mouth, blood in mouth 2/2 possibly biting her tongue, and demonstrating twisting-like movements with her body. Pts daughter also noticed at time that pt had new- onset L-sided facial droop. Pt is also only able to eat puree-like foods at home as per pts daughter, states she sometimes gets food stuck in her cheeks. GI was consulted for a possible PEG. Pt was seen by speech and recommend a purred diet, pt able to swallow without aspiration but takes a very long time after pocketing food. Per nurse yesterday pt ate 50% of lunch but took 30min with assisted feeding. ROS: A 12pt ROS was negative except as above PMhx: as stated above PSurgHx: [facility] B[facility] (performed many years ago as per pt's daughter 2/2 uterine cancer) Fam hx: significant for OR and stroke Soc hx: Denies smoking, EtOH or illicit drug use Past Patient History - Past Medical History & Family History Past Medical History?: Yes - Past Social History Smoking Status: Never Smoked - CARDIAC Hx Hypercholesterolemia: Yes Hx Hypertension: Yes - NEUROLOGICAL Hx Dementia: Yes - ENDOCRINE/METABOLIC Hx Diabetes Mellitus Type 2: Yes - MUSCULOSKELETAL/RHEUMATOLOGICAL Hx Falls: No - PSYCHIATRIC Hx Substance Use: No - ANESTHESIA Hx Anesthesia: No Meds Allergies/Adverse Reactions: Allergies Allergy/AdvReac Type Severity Reaction Status Date / Time No Known Allergies Allergy Verified 06/26/18 04:38 - Medications Medications: Current Medications Aspirin (Aspirin Chewable) 81 mg PO DAILY [facility] Last Admin: 06/27/18 11:00 Dose: 81 mg Dextrose (Dextrose 50% Inj) 0 ml IVP .STAT PRN; Protocol PRN Reason: Hypoglycemia Protocol Dextrose (Glutose 15) 0 gm PO .ONCE PRN; Protocol PRN Reason: Hypoglycemia Protocol Enoxaparin Sodium (Lovenox) 40 mg SC DAILY [facility] Last Admin: 06/27/18 11:00 Dose: 40 mg Glucagon (Glucagen Diagnostic Kit) 0 mg IM .STAT PRN; Protocol PRN Reason: Hypoglycemia Protocol Sodium Chloride (Sodium Chloride 0.9%) 1,000 mls @ 100 mls/hr IV .Q10H [facility] Last Admin: 06/27/18 06:05 Dose: 100 mls/hr Dextrose (Dextrose 5% In Water 1000 Ml) 1,000 mls @ 0 mls/hr IV .Q0M PRN; Protocol PRN Reason: Hypoglycemia Protocol Levetiracetam 500 mg/ Sodium (Chloride) 105 mls @ 420 mls/hr IVPB Q12H [facility] Last Admin: 06/27/18 11:00 Dose: 420 mls/hr Memantine (Namenda) 10 mg PO [facility] Last Admin: 06/26/18 21:16 Dose: 10 mg Rosuvastatin Calcium (Crestor) 5 mg PO [facility] Last Admin: 06/26/18 21:16 Dose: 5 mg Physical Exam - Constitutional Appears: Confused, Cachectic, Chronically Ill - Head Exam Head Exam: ATRAUMATIC, NORMAL INSPECTION, NORMOCEPHALIC - ENT Exam ENT Exam: Mucous Membranes Dry - Respiratory Exam Respiratory Exam: Clear to Auscultation Bilateral, NORMAL BREATHING PATTERN - Cardiovascular Exam Cardiovascular Exam: REGULAR RHYTHM, RRR, +S1, +S2 - GI/Abdominal Exam GI & Abdominal Exam: Normal Bowel Sounds, Soft. absent: Distended, Organomegaly, Tenderness - Rectal Exam Rectal Exam: Deferred - Extremities Exam Extremities exam: Positive for: full ROM, normal inspection - Neurological Exam Neurological exam: Alert, Oriented x3 - Psychiatric Exam Psychiatric exam: Normal Affect, Normal Mood - Skin Skin Exam: Dry, Intact, Normal Color, Warm Results - Vital Signs Recent Vital Signs: Last Vital Signs Temp 99.6 F 06/27/18 08:31 Pulse 96 H 06/27/18 08:31 Resp 18 06/27/18 08:31 BP 193/96 H 06/27/18 08:31 Pulse Ox 95 06/27/18 08:31 - Labs Result Diagrams: 06/27/18 07:10 06/27/18 07:10 Labs: Laboratory Results - last 24 hr 06/26/18 06/26/18 06/26/18 13:50 13:50 13:50 WBC RBC Hgb Hct MCV MCH MCHC RDW Plt Count MPV Neut % (Auto) Lymph % (Auto) [place] % (Auto) Eos % (Auto) Baso % (Auto) Neut # (Auto) Lymph # (Auto) [place] # (Auto) Eos # (Auto) Baso # (Auto) Sodium Potassium Chloride Carbon Dioxide Anion Gap BUN Creatinine Est GFR ( Amer) Est GFR (Non-Af Amer) POC Glucose (mg/dL) Random Glucose Hemoglobin A1c 6.7 H Calcium Phosphorus Magnesium Total Bilirubin AST ALT Alkaline Phosphatase Total Protein Albumin Globulin Albumin/Globulin Ratio Vitamin B12 541 Folate 17.7 Free T4 1.06 TSH 3rd Generation 1.31 RPR 06/26/18 06/26/18 06/27/18 13:50 23:56 06:35 WBC RBC Hgb Hct MCV MCH MCHC RDW Plt Count MPV Neut % (Auto) Lymph % (Auto) [place] % (Auto) Eos % (Auto) Baso % (Auto) Neut # (Auto) Lymph # (Auto) [place] # (Auto) Eos # (Auto) Baso # (Auto) Sodium Potassium Chloride Carbon Dioxide Anion Gap BUN Creatinine Est GFR ( Amer) Est GFR (Non-Af Amer) POC Glucose (mg/dL) 92 149 H Random Glucose Hemoglobin A1c Calcium Phosphorus Magnesium Total Bilirubin AST ALT Alkaline Phosphatase Total Protein Albumin Globulin Albumin/Globulin Ratio Vitamin B12 Folate Free T4 TSH 3rd Generation RPR Nonreactive 06/27/18 06/27/18 06/27/18 07:10 07:10 11:42 WBC 5.8 RBC 3.62 L Hgb 12.3 Hct 36.3 MCV 100.1 H MCH 34.0 H MCHC 34.0 RDW 12.3 Plt Count 264 MPV 8.2 Neut % (Auto) 79.9 H Lymph % (Auto) 14.5 L [place] % (Auto) 4.9 Eos % (Auto) 0.1 Baso % (Auto) 0.6 Neut # (Auto) 4.6 Lymph # (Auto) 0.8 L [place] # (Auto) 0.3 Eos # (Auto) 0.0 Baso # (Auto) 0.0 Sodium 136 Potassium 3.8 Chloride 103 Carbon Dioxide 26 Anion Gap 12 BUN 5 L Creatinine 0.5 L Est GFR ( Amer) > 60 Est GFR (Non-Af Amer) > 60 POC Glucose (mg/dL) 138 H Random Glucose 162 H D Hemoglobin A1c Calcium 9.2 Phosphorus 3.1 Magnesium 1.3 L Total Bilirubin 0.4 AST 27 ALT 18 Alkaline Phosphatase 67 Total Protein 6.6 Albumin 3.7 Globulin 2.9 Albumin/Globulin Ratio 1.3 Vitamin B12 Folate Free T4 TSH 3rd Generation RPR Assessment & Plan - Assessment and Plan (Free Text) Assessment: 1. Dementia 2, Seizure 3. Poor nutrition Plan: -Palliative care meeting mentions family will agree to PEG if necessary, family called for consent for PEG but not available at this time -Will continue to follow pt's progress on pureed diet and discuss with family about further plans -Will make NPO past midnight for possible PEG -Will continue to follow pt <Alexis Tao - Last Filed: 06/27/18 17:42> Meds - Medications Medications: Current Medications Aspirin (Aspirin Chewable) 81 mg PO DAILY [facility] Last Admin: 06/27/18 11:00 Dose: 81 mg Dextrose (Dextrose 50% Inj) 0 ml IVP .STAT PRN; Protocol PRN Reason: Hypoglycemia Protocol Dextrose (Glutose 15) 0 gm PO .ONCE PRN; Protocol PRN Reason: Hypoglycemia Protocol Enoxaparin Sodium (Lovenox) 40 mg SC DAILY [facility] Last Admin: 06/27/18 11:00 Dose: 40 mg Glucagon (Glucagen Diagnostic Kit) 0 mg IM .STAT PRN; Protocol PRN Reason: Hypoglycemia Protocol Sodium Chloride (Sodium Chloride 0.9%) 1,000 mls @ 100 mls/hr IV .Q10H [facility] Last Admin: 06/27/18 06:05 Dose: 100 mls/hr Dextrose (Dextrose 5% In Water 1000 Ml) 1,000 mls @ 0 mls/hr IV .Q0M PRN; Protocol PRN Reason: Hypoglycemia Protocol Levetiracetam 250 mg/ Sodium (Chloride) 102.5 mls @ 420 mls/hr IVPB Q12H [facility] Last Admin: 06/27/18 16:58 Dose: 420 mls/hr Memantine (Namenda) 10 mg PO [facility] Last Admin: 06/26/18 21:16 Dose: 10 mg Rosuvastatin Calcium (Crestor) 5 mg PO HS [facility] Last Admin: 06/26/18 21:16 Dose: 5 mg Results - Vital Signs Recent Vital Signs: Last Vital Signs Temp 98.6 F 06/27/18 15:05 Pulse 84 06/27/18 15:05 Resp 18 06/27/18 15:05 BP 179/82 H 06/27/18 15:05 Pulse Ox 94 L 06/27/18 15:05 - Labs Result Diagrams: 06/27/18 07:10 06/27/18 07:10 Labs: Laboratory Results - last 24 hr 06/26/18 06/27/18 06/27/18 23:56 06:35 07:10 WBC 5.8 RBC 3.62 L Hgb 12.3 Hct 36.3 MCV 100.1 H MCH 34.0 H MCHC 34.0 RDW 12.3 Plt Count 264 MPV 8.2 Neut % (Auto) 79.9 H Lymph % (Auto) 14.5 L [place] % (Auto) 4.9 Eos % (Auto) 0.1 Baso % (Auto) 0.6 Neut # (Auto) 4.6 Lymph # (Auto) 0.8 L [place] # (Auto) 0.3 Eos # (Auto) 0.0 Baso # (Auto) 0.0 Sodium Potassium Chloride Carbon Dioxide Anion Gap BUN Creatinine Est GFR ( Amer) Est GFR (Non-Af Amer) POC Glucose (mg/dL) 92 149 H Random Glucose Calcium Phosphorus Magnesium Total Bilirubin AST ALT Alkaline Phosphatase Total Protein Albumin Globulin Albumin/Globulin Ratio 06/27/18 06/27/18 06/27/18 07:10 11:42 16:18 WBC RBC Hgb Hct MCV MCH MCHC RDW Plt Count MPV Neut % (Auto) Lymph % (Auto) [place] % (Auto) Eos % (Auto) Baso % (Auto) Neut # (Auto) Lymph # (Auto) [place] # (Auto) Eos # (Auto) Baso # (Auto) Sodium 136 Potassium 3.8 Chloride 103 Carbon Dioxide 26 Anion Gap 12 BUN 5 L Creatinine 0.5 L Est GFR ( Amer) > 60 Est GFR (Non-Af Amer) > 60 POC Glucose (mg/dL) 138 H 132 H Random Glucose 162 H D Calcium 9.2 Phosphorus 3.1 Magnesium 1.3 L Total Bilirubin 0.4 AST 27 ALT 18 Alkaline Phosphatase 67 Total Protein 6.6 Albumin 3.7 Globulin 2.9 Albumin/Globulin Ratio 1.3 Attending/Attestation - Attestation I have personally seen and examined this patient.: Yes I have fully participated in the care of the patient.: Yes I have reviewed all pertinent clinical information: Yes Notes (Text): 06/27/18 17:36 I have seen and examined patient with GI fellow. Agree with above documentation with the following additions. In brief, this is an 82 year old female with history of advanced dementia, TIA, DM, HTN, hyperlipidemia who was sent to hospital for evaluation of mental status change. GI called for evaluation of feeding tube placement. She is non-verbal at baseline and not able to participate in conversation. Additional information obtained via chart review, discussion with nursing staff and patient family members. She has apparently been pocketing food in her mouth during attempted assistance with feeds but there is no reported vomiting, food regurgitation, abdominal pain, fever/chills. Unclear regarding prior endoscopic history. Dementia TIA DM/HTN Hyperlipidemia Failure to thrive - NPO - Palliative care note reviewed, appreciated - Patient represents a high risk for aspiration given food pocketing and requiring long periods of time to complete food consumption, would therefore benefit from feeding tube placement though this also does not fully prevent potential aspiration. Risks/benefits of procedure will need to be discussed carefully with family members, if they agree to proceed will tentatively plan for PEG placement tomorrow.
--- NOTE | 2018-06-27 14:29 | CP.PCM.PN ---
<Mateo Lam - Last Filed: 06/27/18 14:30> Subjective - Date & Time of Evaluation Date of Evaluation: 06/27/18 Time of Evaluation: 14:38 - Subjective Subjective: PGY-[address] Fowler Patient seen and examined at bedside. Patient remains nonverbal. ROS unable to be obtained. I had a discussion with her daughter today over the phone who states that this is her baseline mental status. For some time she has been nonverbal and entirely nonresponsive. Daughter also states that the patient has begun to become more contracted because she has become more immobile. The daughter will typically reposition and passively move the patient's extremities at home, but as the patient has become increasingly sedentary and immobile, she has become more contracted. Objective - Vital Signs/Intake and Output Vital Signs (last 24 hours): Temp Pulse Resp BP Pulse Ox 99.6 F 96 H 18 193/96 H 95 06/27/18 08:31 06/27/18 08:31 06/27/18 08:31 06/27/18 08:31 06/27/18 08:31 - Medications Medications: Current Medications Aspirin (Aspirin Chewable) 81 mg PO DAILY [facility] Last Admin: 06/27/18 11:00 Dose: 81 mg Dextrose (Dextrose 50% Inj) 0 ml IVP .STAT PRN; Protocol PRN Reason: Hypoglycemia Protocol Dextrose (Glutose 15) 0 gm PO .ONCE PRN; Protocol PRN Reason: Hypoglycemia Protocol Enoxaparin Sodium (Lovenox) 40 mg SC DAILY [facility] Last Admin: 06/27/18 11:00 Dose: 40 mg Glucagon (Glucagen Diagnostic Kit) 0 mg IM .STAT PRN; Protocol PRN Reason: Hypoglycemia Protocol Sodium Chloride (Sodium Chloride 0.9%) 1,000 mls @ 100 mls/hr IV .Q10H [facility] Last Admin: 06/27/18 06:05 Dose: 100 mls/hr Dextrose (Dextrose 5% In Water 1000 Ml) 1,000 mls @ 0 mls/hr IV .Q0M PRN; Protocol PRN Reason: Hypoglycemia Protocol Levetiracetam 250 mg/ Sodium (Chloride) 102.5 mls @ 420 mls/hr IVPB Q12H [facility] Memantine (Namenda) 10 mg PO HS [facility] Last Admin: 06/26/18 21:16 Dose: 10 mg Rosuvastatin Calcium (Crestor) 5 mg PO HS [facility] Last Admin: 06/26/18 21:16 Dose: 5 mg - Labs Labs: 06/27/18 07:10 06/27/18 07:10 PT 10.9 SECONDS (9.7-12.2) 06/26/18 05:37 INR 1.0 06/26/18 05:37 APTT 22.9 SECONDS (21-34) 06/26/18 05:37 - Constitutional Appears: Chronically Ill - Head Exam Head Exam: ATRAUMATIC, NORMOCEPHALIC - Eye Exam Eye Exam: EOMI - ENT Exam ENT Exam: Mucous Membranes Moist - Cardiovascular Exam Cardiovascular Exam: REGULAR RHYTHM, +S1, +S2 - GI/Abdominal Exam GI & Abdominal Exam: Soft, Normal Bowel Sounds - Extremities Exam Additional comments: Upper and lower extremities contracted and difficult to extend passively - Neurological Exam Neurological Exam: Awake. absent: Alert, Oriented x3 - Psychiatric Exam Psychiatric exam: Flat Affect - Skin Skin Exam: Dry, Intact Assessment and Plan - Assessment and Plan (Free Text) Assessment: 82 y o female with PMhx DM2, HTN, HLD, dementia, who presented to the ED [facility] for stroke-like symptoms. Code Stroke was called. Neurology (Dr. De) consulted. R/o stroke vs. seizure as etiology of symptoms. Plan: AMS, Code Stroke, r/o seizure Imaging -CT head 06/26: No acute intracranial hemorrhage. Chronic microvascular ischemic change. Small lacunar infarcts in the R caudate head and freya. Diffuse generalized parenchymal atrophy. -MRI brain 06/26: No acute intracranial findings -CTA head/neck 06/26: unremarkable -Echo 06/26: Normal Doppler -Was not eligible for tPA due to being outside of window for therapy and due to age -NIHSS 8 -EKG on admission: NSR at 97 bpm, prolonged QT -Seizure, aspiration precautions -RPR nonreactive -TSH, T4, B12, folate - WNL -Home BP med held -Dr. De (Neurology) consulted, recs appreciated --1 hr EEG done at bedside, f/u results Meds -ASA 81 mg PO daily -Keppra 250 mg IVPB bid (reduced from 500 BID) -Crestor 5 mg PO HS Malnutrition Palliative Care consulted, Cony Johnston APN -Patient with advanced directive at home - family is familiar with patient's wishes and will bring the advanced directive tomorrow 06/[address] in chart -POLST signed and patient made DNR/DNI -Family says they will go through with PEG for now if required for adequate nutrition. However they will consider hospice down the line if status does not improve. Patient to remain DNR/DNI. GI consulted, Dr. Tao -Patient evaluated for possible PEG tube placement -Patient being kept NPO overnight for possible PEG tomorrow with GI Dementia -C/w Memantine daily -Risperidone held on admission 2/2 prolonged QT HLD -C/w statin therapy -Lipid panel WNL DM II -Home med Janumet held on admission -Fingersticks achs -Hypoglycemic protocol -A1c ordered Hx HTN -BP meds held on admission -Cont to trend PPX -DVT: Lovenox -GI: n/a -Diet: Pureed with thin liquids -Palliative Care consulted re. goals of care/POLST form, recs appreciated Contact # for Patient's daughter, Ying Lo: Dispo: Patient with advanced directive at home Family is familiar with patient's wishes and will bring the advanced directive tomorrow 06/[address] in chart. POLST signed and patient made DNR/DNI. Possible PEG tomorrow with GI. Assessment and plan d/w Dr. Janeth Lam, PGY-1 <Hina Fowler V - Last Filed: 06/29/18 18:21> Objective - Vital Signs/Intake and Output Vital Signs (last 24 hours): Temp Pulse Resp BP Pulse Ox 97.8 F 68 20 174/81 H 95 06/29/18 15:00 06/29/18 15:00 06/29/18 15:00 06/29/18 15:00 06/29/18 15:00 Intake and Output: 06/29/18 06/29/18 06:59 18:59 Output Total 200 Balance -200 - Medications Medications: Current Medications Aspirin (Aspirin Chewable) 81 mg PO DAILY [facility] Last Admin: 06/29/18 11:19 Dose: 81 mg Dextrose (Dextrose 50% Inj) 0 ml IVP .STAT PRN; Protocol PRN Reason: Hypoglycemia Protocol Dextrose (Glutose 15) 0 gm PO .ONCE PRN; Protocol PRN Reason: Hypoglycemia Protocol Enalapril Maleate (Vasotec) 20 mg GT DAILY [facility] Enalapril Maleate (Vasotec) 10 mg GT ONCE ONE Stop: 06/30/18 19:01 Enoxaparin Sodium (Lovenox) 40 mg SC DAILY [facility] Last Admin: 06/29/18 11:18 Dose: 40 mg Glucagon (Glucagen Diagnostic Kit) 0 mg IM .STAT PRN; Protocol PRN Reason: Hypoglycemia Protocol Hydralazine HCl (Apresoline) 10 mg IVP Q6H PRN PRN Reason: Systolic Blood Pressure Levetiracetam 250 mg/ Sodium (Chloride) 102.5 mls @ 420 mls/hr IVPB Q12H [facility] Last Admin: 06/29/18 14:12 Dose: 420 mls/hr Memantine (Namenda) 10 mg PO HS [facility] Last Admin: 06/28/18 22:56 Dose: 10 mg Morphine Sulfate (Morphine) 1 mg IVP Q4 PRN PRN Reason: Pain, severe (8-10) Stop: 06/29/18 19:28 Rosuvastatin Calcium (Crestor) 5 mg PO [facility] Last Admin: 06/28/18 22:57 Dose: 5 mg Verapamil HCl (Calan Sr Tab) 180 mg PO DAILY [facility] Last Admin: 06/29/18 11:19 Dose: 180 mg - Labs Labs: 06/29/18 07:51 06/29/18 07:51 PT 12.1 SECONDS (9.7-12.2) 06/28/18 08:07 INR 1.1 06/28/18 08:07 APTT 22.9 SECONDS (21-34) 06/26/18 05:37 Attending/Attestation - Attestation I have personally seen and examined this patient.: Yes I have fully participated in the care of the patient.: Yes I have reviewed all pertinent clinical information, including history, physical exam and plan: Yes Notes (Text): This is late computer entry for 06/27/18. Patient seen, examined and case discussed with medical services coordinator. Patient likes to keep her legs flexed however when you separate the legs, they do remain un-contracted; same as the arms. Discussed with palliative care, group meeting was conducted. noted patient has advance directive that needs to be brought in. agreeable to DNR/DNI. POLST completed. Noted during the discussion, patient has been losing weight and started to pocket her foods per the daughter. We will see if GI thinks patient is a candidate for peg placement. I spoke with alicia Burr, to see the patient for peg tube. Family is determining based on alf versus hospice. Discussed with neurology, to lower the Keppra to minimize sedative effects on the patient. patient is at baseline nonverbal, and immobile.
--- NOTE | 2018-06-27 16:54 | CP.PCM.PN ---
Subjective - Date & Time of Evaluation Date of Evaluation: 06/27/18 Time of Evaluation: 16:50 - Subjective Subjective: Neuro Follow-Up Note: Mrs. Kenyon was evaluated tis afternoon at bedside. She remains nonverbal but this is her baseline. She appears comfortable. Exam is difficult to complete 2/2 pt being nonverbal and contracted. She is for PEG placement tomorrow. ROS is unobtainable from the pt 2/2 her condition. Objective - Vital Signs/Intake and Output Vital Signs (last 24 hours): Temp Pulse Resp BP Pulse Ox 98.6 F 84 18 179/82 H 94 L 06/27/18 15:05 06/27/18 15:05 06/27/18 15:05 06/27/18 15:05 06/27/18 15:05 - Medications Medications: Current Medications Aspirin (Aspirin Chewable) 81 mg PO DAILY [facility] Last Admin: 06/27/18 11:00 Dose: 81 mg Dextrose (Dextrose 50% Inj) 0 ml IVP .STAT PRN; Protocol PRN Reason: Hypoglycemia Protocol Dextrose (Glutose 15) 0 gm PO .ONCE PRN; Protocol PRN Reason: Hypoglycemia Protocol Enoxaparin Sodium (Lovenox) 40 mg SC DAILY [facility] Last Admin: 06/27/18 11:00 Dose: 40 mg Glucagon (Glucagen Diagnostic Kit) 0 mg IM .STAT PRN; Protocol PRN Reason: Hypoglycemia Protocol Sodium Chloride (Sodium Chloride 0.9%) 1,000 mls @ 100 mls/hr IV .Q10H [facility] Last Admin: 06/27/18 06:05 Dose: 100 mls/hr Dextrose (Dextrose 5% In Water 1000 Ml) 1,000 mls @ 0 mls/hr IV .Q0M PRN; Protocol PRN Reason: Hypoglycemia Protocol Levetiracetam 250 mg/ Sodium (Chloride) 102.5 mls @ 420 mls/hr IVPB Q12H [facility] Memantine (Namenda) 10 mg PO HS [facility] Last Admin: 06/26/18 21:16 Dose: 10 mg Rosuvastatin Calcium (Crestor) 5 mg PO HS [facility] Last Admin: 06/26/18 21:16 Dose: 5 mg - Labs Labs: 06/27/18 07:10 06/27/18 07:10 PT 10.9 SECONDS (9.7-12.2) 06/26/18 05:37 INR 1.0 06/26/18 05:37 APTT 22.9 SECONDS (21-34) 06/26/18 05:37 - Constitutional Appears: No Acute Distress - Head Exam Head Exam: ATRAUMATIC, NORMAL INSPECTION, NORMOCEPHALIC - Eye Exam Eye Exam: Normal appearance - ENT Exam ENT Exam: Mucous Membranes Moist - Neck Exam Neck Exam: Normal Inspection - Respiratory Exam Respiratory Exam: NORMAL BREATHING PATTERN - Extremities Exam Additional comments: contracted - Neurological Exam Neurological Exam: Altered Additional comments: contracted extremities, difficult to assess. no tremors or abnormal movements otherwise - Psychiatric Exam Additional comments: nonverbal, baseline - Skin Skin Exam: Normal Color Assessment and Plan (1) New onset seizure Assessment & Plan: Imaging reviewed: -Brain MRI (06/26/18): No acute intracranial findings -ECHO (06/26/18): EF 63% -CTA head and neck (06/26/18): No high-grade stenosis. -CT Head (06/26/18): No acute intracranial hemorrhage. Chronic microvascular ischemic change. Small lacunar infarcts in the right caudate head and freya. Diffuse generalized parenchymal atrophy. If symptoms persists, consider maury elation with MRI. -Continue seizure precautions. -Continue Keppra as ordered. If pt has recurrent seizure, we can increase the dose to 500 mg Q12. -For PEG placement tomorrow with GI. -Palliative care on the case. -PT as tolerated. -Notify neuro team of any acute changes in pt's condition. Soco Traore, DNP, MYSQL DBA d/w Dr. De. Status: Acute
[2018-06-28 06:37] LABS: BASO % 0.6 % (0.0-2.0); EOS % 0.8 % (0.0-4.0); HEMOGLOBIN 11.9 g/dL (11.0-16.0); LYMPH # 0.9 K/uL (1.0-4.3); LYMPH % 16.2 % (20.0-40.0); MEAN CELL VOLUME 99.9 fL (81.0-99.0); MEAN CORPUSCULAR HEMOGLOBIN 34.1 pg (27.0-31.0); MEAN CORPUSCULAR HGB CONC 34.1 g/dL (33.0-37.0); MEAN PLATELET VOLUME 7.7 fL (7.2-11.7); MONO # 0.4 K/uL (0.0-0.8); MONO % 7.1 % (0.0-10.0); NEUT # 4.3 K/uL (1.8-7.0); NEUT % 75.3 % (50.0-75.0); RBC 3.49 Mil/uL (3.80-5.20); RED CELL DISTRIBUTION WIDTH 12.2 % (11.5-14.5); WHITE BLOOD COUNT 5.7 K/uL (4.8-10.8)
[2018-06-28 09:00] LABS: INR 1.1; PROTHROMBIN TIME 12.1 SECONDS (9.7-12.2)
[2018-06-28 09:04] LABS: ALB/GLOB RATIO 1.5 (1.0-2.1); ALBUMIN 3.4 g/dL (3.5-5.0); ALT/SGPT 20 U/L (9-52); AST/SGOT 39 U/L (14-36); BLOOD UREA NITROGEN 5 mg/dL (7-17); CALCIUM 8.3 mg/dl (8.6-10.4); GFR NON-AFRICAN AMERICAN > 60
--- NOTE | 2018-06-28 09:40 | PCM.EEG ---
Electroencephalogram Report - Electroencephalogram Report Procedure Date: 06/26/18 Medication: Namenda, Depakote. Interpretation: Technical Information: This was a 16-channel EEG, 1-channel EKG , performed using an [id number] machine., electrodes were applied according to the 10/20 international placement system, impedances were less than 5 K Ohm. Overall poor technical quality. Start; 9;42 End; 10;32 Total; 50 minutes. Clinical Information: dementia and seizures. EEG Detail: During resting wakefulness there was a symmetric posterior dominant rhythm at 7 Hz, 30-50 uV, which was reactive to eye opening and clos ing, EEG was poorly organized, and PDR was poorly sustained. Drowsiness (9;41) was associated with fragmentation of the posterior dominant rhythm and with slow roving eye movements. Sleep was not seen. Hyperventilation was not performed. Photic stimulation was performed and there were no changes in the record. ECG was associated with a normal sinus rhythm. Impression: This is an abnormal EEG record that demonstrate the presence of a mild non specific diffuse disturbance of cortical activity, this is in keeping with a diffuse rangel matter dysfunction. These findings do not support a specific etiology. No seizures, no interictal activity, not in status epilepticus.
[2018-06-28] MEDS: Enoxaparin 40 mg Syringe SC SCH (10:27)
--- NOTE | 2018-06-28 11:38 | CP.PCM.PN ---
<Mateo Lam - Last Filed: 06/28/18 17:09> Subjective - Date & Time of Evaluation Date of Evaluation: 06/28/18 Time of Evaluation: 11:37 - Subjective Subjective: PGY-[address] Fowler Patient seen and examined at bedside. Patient remains nonverbal. S/p PEG placement with Dr. Tao. ROS unable to be obtained. Pending NH placement. Objective - Vital Signs/Intake and Output Vital Signs (last 24 hours): Temp Pulse Resp BP Pulse Ox 98.5 F 69 20 180/83 H 99 06/28/18 07:00 06/28/18 07:07 06/28/18 07:00 06/28/18 07:00 06/28/18 07:00 - Medications Medications: Current Medications Aspirin (Aspirin Chewable) 81 mg PO DAILY [facility] Last Admin: 06/28/18 10:27 Dose: Not Given Dextrose (Dextrose 50% Inj) 0 ml IVP .STAT PRN; Protocol PRN Reason: Hypoglycemia Protocol Dextrose (Glutose 15) 0 gm PO .ONCE PRN; Protocol PRN Reason: Hypoglycemia Protocol Enoxaparin Sodium (Lovenox) 40 mg SC DAILY [facility] Last Admin: 06/28/18 10:27 Dose: Not Given Glucagon (Glucagen Diagnostic Kit) 0 mg IM .STAT PRN; Protocol PRN Reason: Hypoglycemia Protocol Sodium Chloride (Sodium Chloride 0.9%) 1,000 mls @ 100 mls/hr IV .Q10H [facility] Last Admin: 06/27/18 10:45 Dose: Not Given Dextrose (Dextrose 5% In Water 1000 Ml) 1,000 mls @ 0 mls/hr IV .Q0M PRN; Protocol PRN Reason: Hypoglycemia Protocol Levetiracetam 250 mg/ Sodium (Chloride) 102.5 mls @ 420 mls/hr IVPB Q12H [facility] Last Admin: 06/28/18 04:19 Dose: 420 mls/hr Memantine (Namenda) 10 mg PO [facility] Last Admin: 06/27/18 22:25 Dose: 10 mg Potassium Chloride (K-Dur 20 Meq Er Tab) 20 meq PO ONCE ONE Stop: 06/29/18 10:16 Rosuvastatin Calcium (Crestor) 5 mg PO [facility] Last Admin: 06/27/18 22:24 Dose: 5 mg - Labs Labs: 06/28/18 06:30 06/28/18 06:30 PT 12.1 SECONDS (9.7-12.2) 06/28/18 08:07 INR 1.1 06/28/18 08:07 APTT 22.9 SECONDS (21-34) 06/26/18 05:37 - Constitutional Appears: Chronically Ill - Head Exam Head Exam: ATRAUMATIC, NORMOCEPHALIC - Eye Exam Eye Exam: EOMI - ENT Exam ENT Exam: Mucous Membranes Moist - Respiratory Exam Respiratory Exam: Clear to Ausculation Bilateral, NORMAL BREATHING PATTERN. absent: Rhonchi, Wheezes - Cardiovascular Exam Cardiovascular Exam: REGULAR RHYTHM, +S1, +S2 - GI/Abdominal Exam GI & Abdominal Exam: Soft, Normal Bowel Sounds. absent: Tenderness - Extremities Exam Additional comments: Contracted in all four extremities - Neurological Exam Neurological Exam: Awake. absent: Alert, Oriented x3 - Psychiatric Exam Psychiatric exam: Flat Affect - Skin Skin Exam: Dry, Intact Assessment and Plan - Assessment and Plan (Free Text) Assessment: 82 y o female with PMhx DM2, HTN, HLD, dementia, who presented to the ED [facility] for stroke-like symptoms. Code Stroke was called. Neurology (Dr. De) consulted. R/o stroke vs. seizure as etiology of symptoms. Plan: AMS, Code Stroke, r/o seizure Imaging -CT head 06/26: No acute intracranial hemorrhage. Chronic microvascular ischemic change. Small lacunar infarcts in the R caudate head and freya. Diffuse generalized parenchymal atrophy. -MRI brain 06/26: No acute intracranial findings -CTA head/neck 06/26: unremarkable -Echo 06/26: Normal Doppler -Was not eligible for tPA due to being outside of window for therapy and due to age -NIHSS 8 -EKG on admission: NSR at 97 bpm, prolonged QT -Seizure, aspiration precautions -RPR nonreactive -TSH, T4, B12, folate - WNL -Home BP med held -Dr. De (Neurology) consulted, recs appreciated --1 hr EEG done at bedside - findings consistent with nonspecific allred matter changes. No seizure activity noted. Meds -ASA 81 mg PO daily -Keppra 250 mg IVPB bid (reduced from 500 BID) -Crestor 5 mg PO HS Malnutrition Palliative Care consulted, Cony Johnston APN -Patient with advanced directive at home - family is familiar with patient's wishes and will bring the advanced directive tomorrow 06/[address] in chart -POLST signed and patient made DNR/DNI -Family says they will go through with PEG for now if required for adequate nutrition. However they will consider hospice down the line if status does not improve. Patient to remain DNR/DNI. GI consulted, Dr. Tao -S/p PEG, tolerated procedure well -Per GI, okay to give meds and feeds via PEG -Dietary consulted to begin tube feeds - f/u Dementia -C/w Memantine daily -Risperidone held on admission / prolonged QT HLD -C/w statin therapy -Lipid panel WNL DM II -Home med Janumet held on admission -Fingersticks achs -Hypoglycemic protocol -A1c ordered Hx HTN -BP meds held on admission -Cont to trend PPX -DVT: Lovenox -GI: n/a -Diet: Pureed with thin liquids -Palliative Care consulted re. goals of care/POLST form, recs appreciated Contact # for Patient's daughter, Ying Lo: Dispo: DNR/DNI. Ss/p PEG with GI, tolerated well. Pending NH placement. Assessment and plan d/w Dr. Janeth Lam, PGY-1 <Hina Fowler V - Last Filed: 06/29/18 18:30> Objective - Vital Signs/Intake and Output Vital Signs (last 24 hours): Temp Pulse Resp BP Pulse Ox 97.8 F 68 20 174/81 H 95 06/29/18 15:00 06/29/18 15:00 06/29/18 15:00 06/29/18 15:00 06/29/18 15:00 Intake and Output: 06/29/18 06/29/18 06:59 18:59 Output Total 200 Balance -200 - Medications Medications: Current Medications Aspirin (Aspirin Chewable) 81 mg PO DAILY [facility] Last Admin: 06/29/18 11:19 Dose: 81 mg Dextrose (Dextrose 50% Inj) 0 ml IVP .STAT PRN; Protocol PRN Reason: Hypoglycemia Protocol Dextrose (Glutose 15) 0 gm PO .ONCE PRN; Protocol PRN Reason: Hypoglycemia Protocol Enalapril Maleate (Vasotec) 20 mg GT DAILY [facility] Enalapril Maleate (Vasotec) 10 mg GT ONCE ONE Stop: 06/30/18 19:01 Enoxaparin Sodium (Lovenox) 40 mg SC DAILY [facility] Last Admin: 06/29/18 11:18 Dose: 40 mg Glucagon (Glucagen Diagnostic Kit) 0 mg IM .STAT PRN; Protocol PRN Reason: Hypoglycemia Protocol Hydralazine HCl (Apresoline) 10 mg IVP Q6H PRN PRN Reason: Systolic Blood Pressure Levetiracetam 250 mg/ Sodium (Chloride) 102.5 mls @ 420 mls/hr IVPB Q12H [facility] Last Admin: 06/29/18 14:12 Dose: 420 mls/hr Memantine (Namenda) 10 mg PO HS [facility] Last Admin: 06/28/18 22:56 Dose: 10 mg Morphine Sulfate (Morphine) 1 mg IVP Q4 PRN PRN Reason: Pain, severe (8-10) Stop: 06/29/18 19:28 Rosuvastatin Calcium (Crestor) 5 mg PO [facility] Last Admin: 06/28/18 22:57 Dose: 5 mg Verapamil HCl (Calan Sr Tab) 180 mg PO DAILY [facility] Last Admin: 06/29/18 11:19 Dose: 180 mg - Labs Labs: 06/29/18 07:51 06/29/18 07:51 PT 12.1 SECONDS (9.7-12.2) 06/28/18 08:07 INR 1.1 06/28/18 08:07 APTT 22.9 SECONDS (21-34) 06/26/18 05:37 Attending/Attestation - Attestation I have personally seen and examined this patient.: Yes I have fully participated in the care of the patient.: Yes I have reviewed all pertinent clinical information, including history, physical exam and plan: Yes Notes (Text): This is a late computer entry from June 28, 2018. Patient seen post PEG placement. Noted blood pressure is rather high do suspect is secondary to pain secondary to to the PEG placement. Patient is unable to voice her concern but is talking singsong manner. We added morphine 1 mg IV every 4 for pain and instructed nurse to give the morphine. Patient blood pressure also uncontrolled have added Lopressor 5 mg IV every 6 systolic blood pressure as needed to give above 160. I spoken with GI following procedure to suggest 4 fluids with the meds to get be given through the PEG tube.. And possible to start feeds tomorrow. Dietitian referral for tube feedings obtained. I spoken with Nidia the psychiatric social worker will work on placing patient for subacute rehab q. sac is recommended for family meeting to discuss the patient in terms of if she is appropriate candidate. Once that determination has been made they will allow patient to be processed for sore and ultimately can become long-term care after that. 1) New onset Seizure History of Dementia Assessment/Plan * Code stroke 06/26/18 * Neurology Dr. De on board help appreciated * CT head (06/26/18): No acute intracranial hemorrhage. Chronic microvascular ischemic change. Small lacunar infarcts in the R caudate head and freya. Diffuse generalized parenchymal atrophy.- * MRI brain (06/26/18): pending; noted discussed with nursing staff, patient agitated requires some sedation given Ativan0.5mg IV X1 * CTA head/neck (06/26/18): unremarkable * Echo report completed avaiable in the EMR * EEG video does not support seizure: I have spoken with neurology since there is underlying seizure to continue Keppra * Per neurology, started Keppra 500 mg IVPB bid * * C/w statin therapy * ASA loading dose * Per ED note: Was not eligible for tPA due to being outside of window for thera py and due to age * Neurochecks * Seizure precautions * Aspiration precautions 2) Hx dementia Assessment/Plan * c/w with Memantine * held Respirdal given prolonged QT * Peg placement performed by GI 06/28/18-->may give fluid flushes and meds through the peg today and feeds to start potentially tomorrow 3) Hx HLD Assessment/Plan * C/w statin therapy * Lipid panel ordered aviable in the emr 4) Hx DM2 * Home med Janumet held on admission * Fingersticks * Hypoglycemic protocol * A1c o 5) Hx HTN * BP meds held on admission * restart Cardizem 180 CD gt daily * restart Enalapril 10mg gt daily * Control pain secondary from peg placement 6) PPX: * DVT: held Lovenox 40mg subq daily for peg placement; start tomorrow * GI: n/a * Swallow eval; npo given facial droop; recommended for Pureed with thin liquids * Palliative Care consulted re. goals of care/POLST form, recs appreciated * Please note patient's is also admitted; Patient's daughter Ying Lo: Disposition: patient underwent peg placement; pending disposition for residential; social work is aware. Blood pressure uncontrolled; likely worsened secondary to pain from peg placement.
[2018-06-28] MEDS ORDERED: Metoprolol 1 mg/ml Inj IVP PRN (12:06)
[2018-06-28] MEDS ORDERED: Propofol 10 mg/ml Inj (20 ML) ONE (12:17)
[2018-06-28] MEDS ORDERED: Lactated Ringer's 1,000 ML IV ONE (12:20)
[2018-06-28] MEDS ORDERED: ceFAZolin IV 1 gm in Dextrose 1 GM/50 ML BAG IVPB ONE (12:25)
[2018-06-28] MEDS ORDERED: Metoprolol 1 mg/ml Inj IVP ONE (16:28)
--- NOTE | 2018-06-29 01:00 | CP.PCM.PN ---
<Aaron Lam L - Last Filed: 06/29/18 00:56> Subjective - Date & Time of Evaluation Date of Evaluation: 06/29/18 Time of Evaluation: 00:58 - Subjective Subjective: Resident Progress Note for Hospitalist Service Patient examined at bedside. No acute events overnight. Patient responds to painful stimulus but is nonverbal and not voicing any complaints. Tube feeds to start today. Objective - Vital Signs/Intake and Output Vital Signs (last 24 hours): Temp Pulse Resp BP Pulse Ox 98.6 F 82 18 160/79 H 93 L 06/28/18 23:28 06/28/18 23:28 06/28/18 23:28 06/28/18 23:28 06/28/18 23:28 Intake and Output: 06/28/18 06/29/18 18:59 06:59 Intake Total 150 Output Total 200 Balance 150 -200 - Medications Medications: Current Medications Aspirin (Aspirin Chewable) 81 mg PO DAILY [facility] Last Admin: 06/28/18 10:27 Dose: Not Given Dextrose (Dextrose 50% Inj) 0 ml IVP .STAT PRN; Protocol PRN Reason: Hypoglycemia Protocol Dextrose (Glutose 15) 0 gm PO .ONCE PRN; Protocol PRN Reason: Hypoglycemia Protocol Enalapril Maleate (Vasotec) 10 mg PO DAILY [facility] Enoxaparin Sodium (Lovenox) 40 mg SC DAILY [facility] Last Admin: 06/28/18 10:27 Dose: Not Given Glucagon (Glucagen Diagnostic Kit) 0 mg IM .STAT PRN; Protocol PRN Reason: Hypoglycemia Protocol Dextrose (Dextrose 5% In Water 1000 Ml) 1,000 mls @ 0 mls/hr IV .Q0M PRN; Protocol PRN Reason: Hypoglycemia Protocol Levetiracetam 250 mg/ Sodium (Chloride) 102.5 mls @ 420 mls/hr IVPB Q12H [facility] Last Admin: 06/28/18 14:25 Dose: 420 mls/hr Memantine (Namenda) 10 mg PO HS [facility] Last Admin: 06/28/18 22:56 Dose: 10 mg Metoprolol Tartrate (Lopressor) 5 mg IVP Q6 PRN PRN Reason: SBP >160 Last Admin: 06/28/18 14:14 Dose: 5 mg Morphine Sulfate (Morphine) 1 mg IVP Q4 PRN PRN Reason: Pain, severe (8-10) Stop: 06/29/18 19:28 Potassium Chloride (K-Dur 20 Meq Er Tab) 20 meq PO ONCE ONE Stop: 06/29/18 10:16 Rosuvastatin Calcium (Crestor) 5 mg PO HS [facility] Last Admin: 06/28/18 22:57 Dose: 5 mg Verapamil HCl (Calan Sr Tab) 180 mg PO DAILY [facility] - Labs Labs: 06/28/18 06:30 06/28/18 06:30 PT 12.1 SECONDS (9.7-12.2) 06/28/18 08:07 INR 1.1 06/28/18 08:07 APTT 22.9 SECONDS (21-34) 06/26/18 05:37 - Constitutional Appears: Chronically Ill, No Acute Distress - Head Exam Head Exam: ATRAUMATIC, NORMOCEPHALIC - Eye Exam Eye Exam: EOMI - ENT Exam ENT Exam: Mucous Membranes Moist - Respiratory Exam Respiratory Exam: Clear to Auscultation Bilateral, NORMAL BREATHING PATTERN. absent: Rhonchi, Wheezes - Cardiovascular Exam Cardiovascular Exam: REGULAR RHYTHM, +S1, +S2. absent: Tachycardia - GI/Abdominal Exam GI & Abdominal Exam: Soft, Normal Bowel Sounds. absent: Tenderness Additional comments: PEG tube in place - Extremities Exam Additional comments: Contracted in all four extremities - Neurological Exam Neurological Exam: Awake. absent: Alert, Oriented x3 - Skin Skin Exam: Dry, Intact Assessment and Plan - Assessment and Plan (Free Text) Assessment: 82 y o female with PMhx DM2, HTN, HLD, dementia, who presented to the ED [facility] for stroke-like symptoms. Code Stroke was called. Neurology (Dr. De) consulted. R/o stroke vs. seizure as etiology of symptoms. Plan: AMS - code stroke in ED -CT head 06/26: No acute intracranial hemorrhage. Chronic microvascular ischemic change. Small lacunar infarcts in the R caudate head and freya. Diffuse generalized parenchymal atrophy. -MRI brain 06/26: No acute intracranial findings -CTA head/neck 06/26: unremarkable -Echo 06/26: Normal Doppler -Was not eligible for tPA due to being outside of window for therapy and due to age -NIHSS 8 -EKG on admission: NSR at 97 bpm, prolonged QT -Seizure, aspiration precautions -RPR nonreactive -TSH, T4, B12, folate - WNL -Home BP med held -Dr. De (Neurology) consulted, recs appreciated -1 hr EEG done at bedside - findings consistent with nonspecific allred matter changes. No seizure activity noted. Meds -ASA 81 mg PO daily -Keppra 250 mg IVPB bid (reduced from 500 BID) -Crestor 5 mg PO HS Malnutrition Palliative Care consulted, Cony Johnston APN -Patient with advanced directive at home - family is familiar with patient's wishes and will bring the advanced directive tomorrow 06/[address] in chart -POLST signed and patient made DNR/DNI -Family says they will go through with PEG for now if required for adequate nutrition. However they will consider hospice down the line if status does not improve. Patient to remain DNR/DNI. GI consulted, Dr. Tao -S/p PEG, tolerated procedure well -Per GI, okay to give meds and feeds via PEG -Dietary consulted to begin tube feeds- Glucerna 1.5 start rate 20 to increase by ten Q10h with goal rate 40, free water flushes 50 mL Q6h Dementia -C/w Memantine daily -Risperidone held on admission 2/2 prolonged QT HLD -C/w statin therapy -Lipid panel WNL DM II -Home med Janumet held on admission -Fingersticks achs -Hypoglycemic protocol -A1c ordered Hx HTN -BP meds held on admission -Cont to trend PPX -DVT: Lovenox -GI: n/a -Diet: Pureed with thin liquids -Palliative Care consulted re. goals of care/POLST form, recs appreciated Contact # for Patient's daughter, Ying Lo: Dispo: DNR/DNI. S/p PEG with GI, tolerated well. Pending NH placement. Aaron Lam PGY-1 <Hina Fowler V - Last Filed: 06/29/18 18:39> Objective - Vital Signs/Intake and Output Vital Signs (last 24 hours): Temp Pulse Resp BP Pulse Ox 97.8 F 68 20 174/81 H 95 06/29/18 15:00 06/29/18 15:00 06/29/18 15:00 06/29/18 15:00 06/29/18 15:00 Intake and Output: 06/29/18 06/29/18 06:59 18:59 Output Total 200 Balance -200 - Medications Medications: Current Medications Aspirin (Aspirin Chewable) 81 mg PO DAILY [facility] Last Admin: 06/29/18 11:19 Dose: 81 mg Dextrose (Dextrose 50% Inj) 0 ml IVP .STAT PRN; Protocol PRN Reason: Hypoglycemia Protocol Dextrose (Glutose 15) 0 gm PO .ONCE PRN; Protocol PRN Reason: Hypoglycemia Protocol Enalapril Maleate (Vasotec) 20 mg GT DAILY [facility] Enalapril Maleate (Vasotec) 10 mg GT ONCE ONE Stop: 06/29/18 19:01 Enoxaparin Sodium (Lovenox) 40 mg SC DAILY [facility] Last Admin: 06/29/18 11:18 Dose: 40 mg Glucagon (Glucagen Diagnostic Kit) 0 mg IM .STAT PRN; Protocol PRN Reason: Hypoglycemia Protocol Hydralazine HCl (Apresoline) 10 mg IVP Q6H PRN PRN Reason: Systolic Blood Pressure Levetiracetam 250 mg/ Sodium (Chloride) 102.5 mls @ 420 mls/hr IVPB Q12H [facility] Last Admin: 06/29/18 14:12 Dose: 420 mls/hr Memantine (Namenda) 10 mg PO HS [facility] Last Admin: 06/28/18 22:56 Dose: 10 mg Morphine Sulfate (Morphine) 1 mg IVP Q4 PRN PRN Reason: Pain, severe (8-10) Stop: 06/29/18 19:28 Rosuvastatin Calcium (Crestor) 5 mg PO HS [facility] Last Admin: 06/28/18 22:57 Dose: 5 mg Verapamil HCl (Calan Sr Tab) 180 mg PO DAILY [facility] Last Admin: 06/29/18 11:19 Dose: 180 mg - Labs Labs: 06/29/18 07:51 06/29/18 07:51 PT 12.1 SECONDS (9.7-12.2) 06/28/18 08:07 INR 1.1 06/28/18 08:07 APTT 22.9 SECONDS (21-34) 06/26/18 05:37 Attending/Attestation - Attestation I have personally seen and examined this patient.: Yes I have fully participated in the care of the patient.: Yes I have reviewed all pertinent clinical information, including history, physical exam and plan: Yes Notes (Text): Patient seen, examined and case discussed with day-time resident. Patient appears more comfortable today. Voicing in sing-songy voice. lower limbs are able to be extended out when as well as upper extremities during my exam GI has cleared to use the Peg for use; tube feedings started today. Blood pressure uncontrolled; increased enalapril 20mg total today; gave cardizem 180 cd early in the day; if blood pressure remains uncontrolled will add hydralazine 10mg GT QID. 1) New onset Seizure History of Dementia Assessment/Plan * Code stroke 06/26/18 * Neurology Dr. De on board help appreciated * CT head (06/26/18): No acute intracranial hemorrhage. Chronic microvascular ischemic change. Small lacunar infarcts in the R caudate head and freya. Diffuse generalized parenchymal atrophy.- * MRI brain (06/26/18): pending; noted discussed with nursing staff, patient agitated requires some sedation given Ativan0.5mg IV X1 * CTA head/neck (06/26/18): unremarkable * Echo report completed avaiable in the EMR * EEG video does not support seizure: I have spoken with neurology since there is underlying seizure to continue Keppra * Per neurology, started Keppra 500 mg IVPB bid * * C/w statin therapy * ASA loading dose * Per ED note: Was not eligible for tPA due to being outside of window for therapy and due to age * Neurochecks * Seizure precautions * Aspiration precautions 2) Hx dementia Assessment/Plan * c/w with Memantine * held Respirdal given prolonged QT * Peg placement performed by GI 06/28/18-->may give fluid flushes and meds through the peg today and feeds to start potentially tomorrow 3) Hx HLD Assessment/Plan * C/w statin therapy * Lipid panel ordered aviable in the emr 4) Hx DM2 * Home med Janumet held on admission * Fingersticks * Hypoglycemic protocol * A1c: 5) Hx HTN * BP meds held on admission * restart Cardizem 180 CD gt daily * restart Enalapril 10mg gt daily * Control pain secondary from peg placement 6) PPX: * DVT: held Lovenox 40mg subq daily for peg placement; start tomorrow * GI: n/a * Swallow eval; npo given facial droop; recommended for Pureed with thin liquids * Palliative Care consulted re. goals of care/POLST form, recs appreciated * Please note patient's is also admitted; Patient's daughter Ying Lo: Disposition: patient underwent peg placement pod 1; pending disposition for halfway; social work is aware. Blood pressure uncontrolled; adjusted blood pressure medications.
[2018-06-29 08:13] LABS: BASO % 0.2 % (0.0-2.0); EOS % 0.3 % (0.0-4.0); LYMPH # 1.2 K/uL (1.0-4.3); LYMPH % 12.5 % (20.0-40.0); MEAN CELL VOLUME 98.7 fL (81.0-99.0); MEAN CORPUSCULAR HGB CONC 35.4 g/dL (33.0-37.0); MEAN PLATELET VOLUME 8.3 fL (7.2-11.7); MONO # 0.4 K/uL (0.0-0.8); MONO % 3.9 % (0.0-10.0); NEUT # 7.9 K/uL (1.8-7.0); NEUT % 83.1 % (50.0-75.0); RBC 3.43 Mil/uL (3.80-5.20); RED CELL DISTRIBUTION WIDTH 12.4 % (11.5-14.5)
[2018-06-29 08:14] LABS: ALB/GLOB RATIO 1.2 (1.0-2.1); ALBUMIN 3.4 g/dL (3.5-5.0); ALT/SGPT 19 U/L (9-52); AST/SGOT 18 U/L (14-36); BLOOD UREA NITROGEN 8 mg/dL (7-17); CALCIUM 8.9 mg/dl (8.6-10.4); GFR NON-AFRICAN AMERICAN > 60
[2018-06-29 08:17] LABS: WHITE BLOOD COUNT 9.5 K/uL (4.8-10.8)
[2018-06-29] MEDS ORDERED: Verapamil 180 mg ER Tab PO SCH ×2 (10:00→19:27)
[2018-06-29] MEDS ORDERED: Potassium Chloride 20 mEq ER Tab PO ONE (10:15)
[2018-06-29] MEDS ORDERED: Potassium Chloride 20 mEq/15 ml LIQ UD PEG ONE (10:50)
[2018-06-29] MEDS ORDERED: Magnesium Sulfate 1 gm in D5W 1 GM/100 ML BAG IVPB ONE (11:00)
[2018-06-29] MEDS: Enoxaparin 40 mg Syringe SC SCH (11:18)
[2018-06-29] MEDS: Verapamil 180 mg ER Tab PO SCH (11:19)
--- NOTE | 2018-06-29 13:20 | CP.PCM.PN ---
<Kodak Mehta - Last Filed: 06/29/18 13:16> Subjective - Date & Time of Evaluation Date of Evaluation: 06/29/18 Time of Evaluation: 09:30 - Subjective Subjective: PGY-4 GI Fellow Prog Note Pt lying in bed when seen this AM. Nonverbal. No issues noted overnight. Unable to obtain ROS due to clinical condition Objective - Vital Signs/Intake and Output Vital Signs (last 24 hours): Temp Pulse Resp BP Pulse Ox 98.1 F 66 20 160/72 H 96 06/29/18 07:00 06/29/18 07:00 06/29/18 07:00 06/29/18 08:56 06/29/18 07:00 Intake and Output: 06/29/18 06/29/18 06:59 18:59 Output Total 200 Balance -200 - Medications Medications: Current Medications Aspirin (Aspirin Chewable) 81 mg PO DAILY [facility] Last Admin: 06/29/18 11:19 Dose: 81 mg Dextrose (Dextrose 50% Inj) 0 ml IVP .STAT PRN; Protocol PRN Reason: Hypoglycemia Protocol Dextrose (Glutose 15) 0 gm PO .ONCE PRN; Protocol PRN Reason: Hypoglycemia Protocol Enalapril Maleate (Vasotec) 10 mg PO DAILY [facility] Enoxaparin Sodium (Lovenox) 40 mg SC DAILY [facility] Last Admin: 06/29/18 11:18 Dose: 40 mg Glucagon (Glucagen Diagnostic Kit) 0 mg IM .STAT PRN; Protocol PRN Reason: Hypoglycemia Protocol Levetiracetam 250 mg/ Sodium (Chloride) 102.5 mls @ 420 mls/hr IVPB Q12H [facility] Last Admin: 06/29/18 03:24 Dose: 420 mls/hr Memantine (Namenda) 10 mg PO HS [facility] Last Admin: 06/28/18 22:56 Dose: 10 mg Morphine Sulfate (Morphine) 1 mg IVP Q4 PRN PRN Reason: Pain, severe (8-10) Stop: 06/29/18 19:28 Rosuvastatin Calcium (Crestor) 5 mg PO HS [facility] Last Admin: 06/28/18 22:57 Dose: 5 mg Verapamil HCl (Calan Sr Tab) 180 mg PO DAILY [facility] Last Admin: 06/29/18 11:19 Dose: 180 mg - Labs Labs: 06/29/18 07:51 06/29/18 07:51 PT 12.1 SECONDS (9.7-12.2) 06/28/18 08:07 INR 1.1 06/28/18 08:07 APTT 22.9 SECONDS (21-34) 06/26/18 05:37 - Constitutional Appears: No Acute Distress, Chronically Ill - Head Exam Head Exam: ATRAUMATIC Additional comments: temporal wasting - ENT Exam ENT Exam: Mucous Membranes Dry. absent: Mucous Membranes Moist - Respiratory Exam Respiratory Exam: NORMAL BREATHING PATTERN. absent: Accessory Muscle Use - GI/Abdominal Exam GI & Abdominal Exam: Soft. absent: Distended, Firm, Guarding, Rigid Additional comments: PEG in place (ext bumper at 2.5 cm) Assessment and Plan - Assessment and Plan (Free Text) Assessment: 1. Dementia 2. Seizure 3. Poor nutrition Plan: - s/p PEG 06/28 --- External bumper loosened to 2.5 cm today - OK to start tube feeds - Avoid placing dressing between skin and external bumper - Flush tube q 6-8 hrs with 30 mL water to avoid clogging Pt seen and examined with Dr. Smith. Please see attestation for further recs/changes. <Esme Smith - Last Filed: 06/29/18 13:32> Objective - Vital Signs/Intake and Output Vital Signs (last 24 hours): Temp Pulse Resp BP Pulse Ox 98.1 F 66 20 160/72 H 96 06/29/18 07:00 06/29/18 07:00 06/29/18 07:00 06/29/18 08:56 06/29/18 07:00 Intake and Output: 06/29/18 06/29/18 06:59 18:59 Output Total 200 Balance -200 - Medications Medications: Current Medications Aspirin (Aspirin Chewable) 81 mg PO DAILY [facility] Last Admin: 06/29/18 11:19 Dose: 81 mg Dextrose (Dextrose 50% Inj) 0 ml IVP .STAT PRN; Protocol PRN Reason: Hypoglycemia Protocol Dextrose (Glutose 15) 0 gm PO .ONCE PRN; Protocol PRN Reason: Hypoglycemia Protocol Enalapril Maleate (Vasotec) 10 mg PO DAILY [facility] Enoxaparin Sodium (Lovenox) 40 mg SC DAILY [facility] Last Admin: 06/29/18 11:18 Dose: 40 mg Glucagon (Glucagen Diagnostic Kit) 0 mg IM .STAT PRN; Protocol PRN Reason: Hypoglycemia Protocol Levetiracetam 250 mg/ Sodium (Chloride) 102.5 mls @ 420 mls/hr IVPB Q12H [facility] Last Admin: 06/29/18 03:24 Dose: 420 mls/hr Memantine (Namenda) 10 mg PO HS [facility] Last Admin: 06/28/18 22:56 Dose: 10 mg Morphine Sulfate (Morphine) 1 mg IVP Q4 PRN PRN Reason: Pain, severe (8-10) Stop: 06/29/18 19:28 Rosuvastatin Calcium (Crestor) 5 mg PO HS [facility] Last Admin: 06/28/18 22:57 Dose: 5 mg Verapamil HCl (Calan Sr Tab) 180 mg PO DAILY [facility] Last Admin: 06/29/18 11:19 Dose: 180 mg - Labs Labs: 06/29/18 07:51 06/29/18 07:51 PT 12.1 SECONDS (9.7-12.2) 06/28/18 08:07 INR 1.1 06/28/18 08:07 APTT 22.9 SECONDS (21-34) 06/26/18 05:37 Attending/Attestation - Attestation I have personally seen and examined this patient.: Yes I have fully participated in the care of the patient.: Yes I have reviewed all pertinent clinical information, including history, physical exam and plan: Yes Notes (Text): 06/29/18 13:30 I have seen and examined the patient with the GI fellow. Peg site c/d/i. Loosened outer bumper to 2.5. Ok to start feeds as per nutrition, goal 40 cc/hr with Glucerna 1.5. Will sign off, pls call with questions.
[2018-06-30 08:41] LABS: BASO % 0.2 % (0.0-2.0); EOS # 0.1 K/uL (0.0-0.7); EOS % 1.5 % (0.0-4.0); HEMOGLOBIN 12.1 g/dL (11.0-16.0); LYMPH # 1.1 K/uL (1.0-4.3); LYMPH % 12.8 % (20.0-40.0); MEAN CELL VOLUME 98.9 fL (81.0-99.0); MEAN CORPUSCULAR HEMOGLOBIN 34.4 pg (27.0-31.0); MEAN CORPUSCULAR HGB CONC 34.8 g/dL (33.0-37.0); MEAN PLATELET VOLUME 8.4 fL (7.2-11.7); MONO # 0.4 K/uL (0.0-0.8); NEUT # 6.8 K/uL (1.8-7.0); NEUT % 80.5 % (50.0-75.0); NRBC % 0.1 % (0.0-2.0); RBC 3.53 Mil/uL (3.80-5.20); RED CELL DISTRIBUTION WIDTH 12.3 % (11.5-14.5); WHITE BLOOD COUNT 8.4 K/uL (4.8-10.8)
[2018-06-30 08:51] LABS: ALB/GLOB RATIO 1.4 (1.0-2.1); ALBUMIN 3.6 g/dL (3.5-5.0); ALT/SGPT 26 U/L (9-52); AST/SGOT 25 U/L (14-36); BLOOD UREA NITROGEN 9 mg/dL (7-17); CALCIUM 9.1 mg/dl (8.6-10.4); GFR NON-AFRICAN AMERICAN > 60
--- NOTE | 2018-06-30 09:55 | CARD ---
APPROVED REPORT Date of service: 06/26/2018 EKG Measurement Heart [id number] <Conclusion> Sinus tachycardia Nonspecific ST and T wave abnormality Abnormal ECG
--- NOTE | 2018-06-30 10:05 | CARD ---
APPROVED REPORT Date of service: 06/26/2018 EKG Measurement Heart [id number] <Conclusion> Suspect arm lead reversal, interpretation assumes no reversal Normal sinus rhythm Anterolateral infarct, age undetermined Abnormal ECG
[2018-06-30] MEDS: Enoxaparin 40 mg Syringe SC SCH (10:38)
[2018-06-30] MEDS: Verapamil 180 mg ER Tab PO SCH (10:38)
--- NOTE | 2018-06-30 10:53 | CP.PCM.PN ---
Subjective - Date & Time of Evaluation Date of Evaluation: 06/30/18 Time of Evaluation: 10:45 - Subjective Subjective: Medical Attending Note: Patient seen and examined. No acute events overnight. patient is tolerating her feeds. No residual noted. Patient's blood pressure is elevated 192/80 at bedside. Nurse skyler is about to give her medications; I've put in Morphine 0.5mg IVPX1. Patient is becoming stiff; have to stretch out her legs however, patient likes to put her legs back in position Objective - Vital Signs/Intake and Output Vital Signs (last 24 hours): Temp Pulse Resp BP Pulse Ox 97.8 F 71 20 192/80 H 96 06/30/18 07:30 06/30/18 07:30 06/30/18 07:30 06/30/18 10:45 06/30/18 07:30 Intake and Output: 06/30/18 06/30/18 06:59 18:59 Intake Total 180 Output Total 350 Balance -170 - Medications Medications: Current Medications Aspirin (Aspirin Chewable) 81 mg PO DAILY [facility] Last Admin: 06/30/18 10:38 Dose: 81 mg Dextrose (Dextrose 50% Inj) 0 ml IVP .STAT PRN; Protocol PRN Reason: Hypoglycemia Protocol Dextrose (Glutose 15) 0 gm PO .ONCE PRN; Protocol PRN Reason: Hypoglycemia Protocol Enalapril Maleate (Vasotec) 20 mg GT DAILY [facility] Last Admin: 06/30/18 10:45 Dose: 20 mg Enoxaparin Sodium (Lovenox) 40 mg SC DAILY [facility] Last Admin: 06/30/18 10:38 Dose: 40 mg Glucagon (Glucagen Diagnostic Kit) 0 mg IM .STAT PRN; Protocol PRN Reason: Hypoglycemia Protocol Hydralazine HCl (Apresoline) 10 mg GT QID [facility] Last Admin: 06/30/18 10:38 Dose: 10 mg Levetiracetam 250 mg/ Sodium (Chloride) 102.5 mls @ 420 mls/hr IVPB Q12H [facility] Last Admin: 06/30/18 03:35 Dose: 420 mls/hr Memantine (Namenda) 10 mg PO HS [facility] Last Admin: 06/29/18 22:38 Dose: 10 mg Morphine Sulfate (Morphine) 0.5 mg IVP STAT [facility] Stop: 05/26/19 10:51 Rosuvastatin Calcium (Crestor) 5 mg PO HS [facility] Last Admin: 06/29/18 22:38 Dose: 5 mg Verapamil HCl (Calan Sr Tab) 180 mg PO DAILY [facility] Last Admin: 06/30/18 10:38 Dose: 180 mg - Labs Labs: 06/30/18 08:21 06/30/18 08:21 PT 12.1 SECONDS (9.7-12.2) 06/28/18 08:07 INR 1.1 06/28/18 08:07 APTT 22.9 SECONDS (21-34) 06/26/18 05:37 - Constitutional Appears: Non-toxic, No Acute Distress, Cachectic - Head Exam Head Exam: NORMAL INSPECTION - Eye Exam Eye Exam: EOMI - ENT Exam ENT Exam: Mucous Membranes Dry - Respiratory Exam Respiratory Exam: Clear to Ausculation Bilateral, NORMAL BREATHING PATTERN. absent: Rales, Rhonchi, Wheezes - Cardiovascular Exam Cardiovascular Exam: REGULAR RHYTHM, +S1, +S2 - GI/Abdominal Exam GI & Abdominal Exam: Soft, Tenderness (mild tender on palpation), Normal Bowel Sounds. absent: Distended, Firm, Guarding, Rigid, Rebound Additional comments: has abdominal binder over the peg site - Extremities Exam Extremities Exam: absent: Pedal Edema, Tenderness - Neurological Exam Neurological Exam: Awake - Skin Skin Exam: Dry, Intact, Normal Color, Warm Assessment and Plan (1) Severe dementia Status: Acute (2) Seizure Status: Acute (3) Hypertension Status: Acute (4) Lipid disorder Status: Acute (5) Prophylactic measure Status: Acute Attending/Attestation - Attestation I have personally seen and examined this patient.: Yes I have fully participated in the care of the patient.: Yes I have reviewed all pertinent clinical information, including history, physical exam and plan: Yes Notes (Text): Patient seen, examined and case discussed with day-time resident. Patient appears more comfortable today. Voicing in sing-songy voice. lower limbs are able to be extended out when as well as upper extremities during my exam GI has cleared to use the Peg for use; tube feedings started yesterday Blood pressure uncontrolled; c/w enalapril 20mg total today; cardizem 180 cd early in the day; and started hydralazine 10mg GT QID. Ordered for Morphine 0.5mg iVP X1 given likely also element of pain since peg was placed about 2 days ago and patient cannot voice her pain given her severe dementia. 1) New onset Seizure History of Severe Dementia Assessment/Plan * Code stroke 06/26/18 * Neurology Dr. De on board help appreciated * Not candidate for TPA given time and age per ED note * CT head (06/26/18): No acute intracranial hemorrhage. Chronic microvascular ischemic change. Small lacunar infarcts in the R caudate head and freya. Diffuse generalized parenchymal atrophy.- * MRI brain (06/26/18): No acute intracranial findings * CTA head/neck (06/26/18): unremarkable * Echo report completed avaiable in the EMR * EEG video does not support seizure: I have spoken with neurology since there is underlying seizure to continue Keppra * Per neurology, started Keppra 500 mg IVPB bid * Lowered to 250mg IVPB to reduce side effect of lethargy * Aspirin 81mg GT daily * Enalarpil 20mg GT daily * Hydralazine 10mg GT QID * Calan Sr 180mg GT daily * Crestor 5mg GT QHS * Neurochecks * Seizure precautions * Aspiration precautions 2) Hx severe dementia Assessment/Plan * Palliative Care on board * Difficulties taking PO meds due to lethargy * Family advocates for promotion of quality of life without use of aggressive interventions, except pEG if recommended by Medical team * Family would like LTC placement; [facility] or [facility] * DNR/DNI * Patient does have advance care directive which family needs to bring in * GI on board * for peg placement * c/w with Memantine * held Respirdal given prolonged QT on admission * Patient received peg placement 06/27/18 * Tube feedings: Glucerna 1.5 start rate 20 to increase by ten Q10h with goal rate 40, free water flushes 50 mL Q6h 3) Hx HLD Assessment/Plan * Crestor 5mg POqHS * T, cholestrol: 105, LDL:56, HDL: 43 4) Hx DM2 * Accuchecks Q6H * Hypoglycemic protocol * A1c:6.7 * Novolog protocol (low dose) [id number] 5) Hx HTN, uncontrolled * BP meds held on admission * restart Cardizem 180 CD gt daily * restart Enalapril 10mg gt daily * add hydralazine 10mg GT qid * Control pain secondary from peg placement 6) Gastritis Assessment/Plan * noted in GI operative note * start Pepcid 20mg IVP Q12H 6) PPX: * DVT: held Lovenox 40mg subq daily for peg placement; Lovenox 40mg subq daily resumed * GI: Pepcid 20mg IVPQ12 * Swallow eval; npo given facial droop; recommended for Pureed with thin liquids * Palliative Care consulted re. goals of care/POLST form, recs appreciated * Please note patient's is also admitted; Patient's daughter Ying Lo: Disposition: patient underwent peg placement pod 3; pending disposition for prison; social work is aware. Blood pressure uncontrolled; adjusted blood pressure medications and control pain from peg; Patient will need to have a shakiri halima meeting with [facility] when I spoke with Nidia the social media analyst this past Sunday.
[2018-06-30] MEDS: (Novolog) Insulin Aspart, Recombinant 100 u/ml 10 ml vial SC SCH ×3 (12:59→22:16)
[2018-07-01] MEDS: (Novolog) Insulin Aspart, Recombinant 100 u/ml 10 ml vial SC SCH ×4 (08:15→19:52)
[2018-07-01 08:20] LABS: BASO % 0.3 % (0.0-2.0); EOS # 0.1 K/uL (0.0-0.7); EOS % 1.8 % (0.0-4.0); HEMOGLOBIN 11.7 g/dL (11.0-16.0); LYMPH # 0.9 K/uL (1.0-4.3); MEAN CELL VOLUME 98.8 fL (81.0-99.0); MEAN CORPUSCULAR HEMOGLOBIN 33.8 pg (27.0-31.0); MEAN CORPUSCULAR HGB CONC 34.2 g/dL (33.0-37.0); MEAN PLATELET VOLUME 8.5 fL (7.2-11.7); MONO # 0.4 K/uL (0.0-0.8); NEUT # 4.8 K/uL (1.8-7.0); NEUT % 76.9 % (50.0-75.0); NRBC % 0.1 % (0.0-2.0); RBC 3.45 Mil/uL (3.80-5.20); RED CELL DISTRIBUTION WIDTH 12.4 % (11.5-14.5); WHITE BLOOD COUNT 6.3 K/uL (4.8-10.8)
[2018-07-01 08:57] LABS: ALB/GLOB RATIO 1.2 (1.0-2.1); ALBUMIN 3.3 g/dL (3.5-5.0); ALT/SGPT 26 U/L (9-52); AST/SGOT 27 U/L (14-36); BLOOD UREA NITROGEN 14 mg/dL (7-17); CALCIUM 8.9 mg/dl (8.6-10.4); GFR NON-AFRICAN AMERICAN > 60
[2018-07-01] MEDS: Enoxaparin 40 mg Syringe SC SCH (09:30)
[2018-07-01] MEDS: Verapamil 180 mg ER Tab PO SCH (09:47)
--- NOTE | 2018-07-01 11:23 | CP.PCM.PN ---
<LamTasiasingh L - Last Filed: 07/01/18 18:52> Subjective - Date & Time of Evaluation Date of Evaluation: 07/01/18 Time of Evaluation: 11:22 - Subjective Subjective: Resident Progress Note for Hospitalist Service Patient examined at bedside. No acute events overnight. Patient responds to painful stimulus but is nonverbal and not voicing any complaints. Tube feeds to start today. Objective - Vital Signs/Intake and Output Vital Signs (last 24 hours): Temp Pulse Resp BP Pulse Ox 98.5 F 68 18 151/65 H 97 07/01/18 08:42 07/01/18 08:42 07/01/18 08:42 07/01/18 09:29 07/01/18 08:42 Intake and Output: 07/01/18 07/01/18 06:59 18:59 Intake Total 670 Output Total 100 Balance 570 - Medications Medications: Current Medications Aspirin (Aspirin Chewable) 81 mg PO DAILY [facility] Last Admin: 07/01/18 09:30 Dose: 81 mg Dextrose (Dextrose 50% Inj) 0 ml IVP .STAT PRN; Protocol PRN Reason: Hypoglycemia Protocol Dextrose (Glutose 15) 0 gm PO .ONCE PRN; Protocol PRN Reason: Hypoglycemia Protocol Enalapril Maleate (Vasotec) 20 mg GT DAILY [facility] Last Admin: 07/01/18 09:29 Dose: 20 mg Enoxaparin Sodium (Lovenox) 40 mg SC DAILY [facility] Last Admin: 07/01/18 09:30 Dose: 40 mg Famotidine (Pepcid) 20 mg IVP Q12 [facility] Last Admin: 07/01/18 09:30 Dose: 20 mg Glucagon (Glucagen Diagnostic Kit) 0 mg IM .STAT PRN; Protocol PRN Reason: Hypoglycemia Protocol Hydralazine HCl (Apresoline) 10 mg GT QID [facility] Last Admin: 07/01/18 09:30 Dose: 10 mg Levetiracetam 250 mg/ Sodium (Chloride) 102.5 mls @ 420 mls/hr IVPB Q12H [facility] Last Admin: 07/01/18 03:19 Dose: 420 mls/hr Insulin Aspart (Novolog) 0 unit SC Q6H [facility]; Protocol Memantine (Namenda) 10 mg PO HS [facility] Last Admin: 06/30/18 22:16 Dose: 10 mg Rosuvastatin Calcium (Crestor) 5 mg PO HS [facility] Last Admin: 06/30/18 22:16 Dose: 5 mg Verapamil HCl (Calan Sr Tab) 180 mg PO DAILY [facility] - Labs Labs: 07/01/18 08:07 07/01/18 08:07 PT 12.1 SECONDS (9.7-12.2) 06/28/18 08:07 INR 1.1 06/28/18 08:07 APTT 22.9 SECONDS (21-34) 06/26/18 05:37 - Constitutional Appears: Non-toxic, Chronically Ill, Cachectic - Head Exam Head Exam: ATRAUMATIC, NORMOCEPHALIC - Eye Exam Eye Exam: EOMI - ENT Exam ENT Exam: Mucous Membranes Dry - Respiratory Exam Respiratory Exam: Clear to Auscultation Bilateral, NORMAL BREATHING PATTERN. absent: Rales, Rhonchi, Wheezes - Cardiovascular Exam Cardiovascular Exam: REGULAR RHYTHM, +S1, +S2 - GI/Abdominal Exam GI & Abdominal Exam: Soft, Normal Bowel Sounds. absent: Tenderness, Distended, Firm, Guarding, Rigid, Rebound Additional comments: abdominal binder over the peg site - Extremities Exam Extremities Exam: absent: Pedal Edema, Tenderness - Neurological Exam Neurological Exam: Awake - Skin Skin Exam: Dry, Intact, Normal Color, Warm Assessment and Plan - Assessment and Plan (Free Text) Assessment: 82 y o female with PMhx DM2, HTN, HLD, dementia, who presented to the ED [facility] for stroke-like symptoms. Plan: AMS, acute -Code stroke in ED -CT head 06/26: No acute intracranial hemorrhage. Chronic microvascular ischemic change. Small lacunar infarcts in the R caudate head and freya. Diffuse generalized parenchymal atrophy. -MRI brain 06/26: No acute intracranial findings -CTA head/neck 06/26: unremarkable -Echo 06/26: Normal Doppler -Was not eligible for tPA due to being outside of window for therapy and due to age -NIHSS 8 -EKG on admission: NSR at 97 bpm, prolonged QT -Seizure, aspiration precautions -RPR nonreactive -TSH, T4, B12, folate - WNL -Dr. De (Neurology) consulted, recs appreciated -1 hr EEG done at bedside - findings consistent with nonspecific allred matter changes. No seizure activity noted -ASA 81 mg PO daily -Keppra 250 mg IVPB bid (reduced from 500 BID) -Crestor 5 mg PO HS Malnutrition, chronic Palliative Care consulted, Cony Johnston APN -POLST signed and patient made DNR/DNI -Family will consider hospice down the line if status does not improve. Patient to remain DNR/DNI. GI consulted, Dr. Tao -S/p PEG, tolerated procedure well -Glucerna 1.5 start rate 20 to increase by ten Q10h with goal rate 40, free water flushes 50 mL Q6h Dementia, chronic -C/w Memantine daily -Risperidone held on admission 2/2 prolonged QT HLD, chronic -C/w rosuvastatin -Lipid panel WNL DM II, chronic -Home med Janumet held on admission -Fingersticks q6H -ISS, Hypoglycemic protocol -Hgba1c 6.7 Hx HTN, chronic -Hydralazine 10 mg GT QID -Vasotec 20 mg GT daily -Verapamil 180 mg PO daily PPX, acute -DVT: Lovenox Contact # for Patient's daughter, Ying Lo: Dispo: DNR/DNI. S/p PEG with GI, tolerated well. Pending NH placement. Case reviewed with Dr. Kenneth Lam PGY-1 <Kenneth Avina - Last Filed: 07/02/18 19:53> Objective - Vital Signs/Intake and Output Vital Signs (last 24 hours): Temp Pulse Resp BP Pulse Ox 98.4 F 73 20 142/69 96 07/02/18 15:00 07/02/18 15:00 07/02/18 15:00 07/02/18 15:00 07/02/18 15:00 - Medications Medications: Current Medications Aspirin (Aspirin Chewable) 81 mg PO DAILY [facility] Last Admin: 07/02/18 11:03 Dose: 81 mg Dextrose (Dextrose 50% Inj) 0 ml IVP .STAT PRN; Protocol PRN Reason: Hypoglycemia Protocol Dextrose (Glutose 15) 0 gm PO .ONCE PRN; Protocol PRN Reason: Hypoglycemia Protocol Enalapril Maleate (Vasotec) 20 mg GT DAILY [facility] Last Admin: 07/02/18 11:04 Dose: 20 mg Enoxaparin Sodium (Lovenox) 40 mg SC DAILY [facility] Last Admin: 07/02/18 11:03 Dose: 40 mg Famotidine (Pepcid) 20 mg IVP Q12 [facility] Last Admin: 07/02/18 11:04 Dose: 20 mg Glucagon (Glucagen Diagnostic Kit) 0 mg IM .STAT PRN; Protocol PRN Reason: Hypoglycemia Protocol Hydralazine HCl (Apresoline) 25 mg GT QID [facility] Last Admin: 07/02/18 17:59 Dose: 25 mg Levetiracetam 250 mg/ Sodium (Chloride) 102.5 mls @ 420 mls/hr IVPB Q12H [facility] Last Admin: 07/02/18 14:09 Dose: 420 mls/hr Insulin Aspart (Novolog) 0 unit SC Q6H [facility]; Protocol Last Admin: 07/02/18 17:59 Dose: 2 units Memantine (Namenda) 10 mg PO HS [facility] Last Admin: 07/01/18 21:52 Dose: 10 mg Rosuvastatin Calcium (Crestor) 5 mg PO HS [facility] Last Admin: 07/01/18 21:52 Dose: 5 mg Verapamil HCl (Calan Tab) 40 mg GT QID [facility] Last Admin: 07/02/18 17:59 Dose: 40 mg - Labs Labs: 07/02/18 07:09 07/02/18 07:09 PT 12.1 SECONDS (9.7-12.2) 06/28/18 08:07 INR 1.1 06/28/18 08:07 APTT 22.9 SECONDS (21-34) 06/26/18 05:37 Attending/Attestation - Attestation I have personally seen and examined this patient.: Yes I have fully participated in the care of the patient.: Yes I have reviewed all pertinent clinical information, including history, physical exam and plan: Yes Notes (Text): 07/02/18 19:52 This is a late entry. Care of this patient was gone over with resident Dr. Walker. Kenneth Aivna D.O.
[2018-07-02] MEDS: (Novolog) Insulin Aspart, Recombinant 100 u/ml 10 ml vial SC SCH ×4 (02:29→17:59)
[2018-07-02 07:23] LABS: BASO % 0.3 % (0.0-2.0); EOS # 0.1 K/uL (0.0-0.7); EOS % 2.5 % (0.0-4.0); HEMOGLOBIN 11.9 g/dL (11.0-16.0); LYMPH # 0.9 K/uL (1.0-4.3); LYMPH % 20.2 % (20.0-40.0); MEAN CELL VOLUME 98.7 fL (81.0-99.0); MEAN CORPUSCULAR HEMOGLOBIN 34.2 pg (27.0-31.0); MEAN CORPUSCULAR HGB CONC 34.7 g/dL (33.0-37.0); MEAN PLATELET VOLUME 8.4 fL (7.2-11.7); MONO # 0.3 K/uL (0.0-0.8); MONO % 7.4 % (0.0-10.0); NEUT # 3.1 K/uL (1.8-7.0); NEUT % 69.6 % (50.0-75.0); RBC 3.47 Mil/uL (3.80-5.20); RED CELL DISTRIBUTION WIDTH 12.2 % (11.5-14.5); WHITE BLOOD COUNT 4.5 K/uL (4.8-10.8)
[2018-07-02 07:35] LABS: ALB/GLOB RATIO 1.2 (1.0-2.1); ALBUMIN 3.3 g/dL (3.5-5.0); ALT/SGPT 27 U/L (9-52); AST/SGOT 24 U/L (14-36); BLOOD UREA NITROGEN 13 mg/dL (7-17); GFR NON-AFRICAN AMERICAN > 60
--- NOTE | 2018-07-02 08:03 | CP.PCM.PN ---
<Mateo Lam - Last Filed: 07/02/18 16:49> Subjective - Date & Time of Evaluation Date of Evaluation: 07/02/18 Time of Evaluation: 10:22 - Subjective Subjective: PGY-[address] Fowler Patient seen and examined at bedside. Patient remains nonverbal. Tolerating tube feeds via PEG. ROS unable to be obtained. Pending NH placement. Objective - Vital Signs/Intake and Output Vital Signs (last 24 hours): Temp Pulse Resp BP Pulse Ox 98.4 F 73 20 119/64 94 L 07/01/18 23:25 07/01/18 23:25 07/01/18 23:25 07/01/18 23:25 07/01/18 23:25 Intake and Output: 07/02/18 07/02/18 06:59 18:59 Intake Total 420 Output Total 250 Balance 170 - Medications Medications: Current Medications Aspirin (Aspirin Chewable) 81 mg PO DAILY COUNTS INCLUDE 234 BEDS AT THE [facility] Last Admin: 07/01/18 09:30 Dose: 81 mg Dextrose (Dextrose 50% Inj) 0 ml IVP .STAT PRN; Protocol PRN Reason: Hypoglycemia Protocol Dextrose (Glutose 15) 0 gm PO .ONCE PRN; Protocol PRN Reason: Hypoglycemia Protocol Enalapril Maleate (Vasotec) 20 mg GT DAILY COUNTS INCLUDE 234 BEDS AT THE [facility] Last Admin: 07/01/18 09:29 Dose: 20 mg Enoxaparin Sodium (Lovenox) 40 mg SC DAILY COUNTS INCLUDE 234 BEDS AT THE [facility] Last Admin: 07/01/18 09:30 Dose: 40 mg Famotidine (Pepcid) 20 mg IVP Q12 COUNTS INCLUDE 234 BEDS AT THE [facility] Last Admin: 07/01/18 21:52 Dose: 20 mg Glucagon (Glucagen Diagnostic Kit) 0 mg IM .STAT PRN; Protocol PRN Reason: Hypoglycemia Protocol Hydralazine HCl (Apresoline) 10 mg GT QID COUNTS INCLUDE 234 BEDS AT THE [facility] Last Admin: 07/01/18 21:52 Dose: 10 mg Levetiracetam 250 mg/ Sodium (Chloride) 102.5 mls @ 420 mls/hr IVPB Q12H COUNTS INCLUDE 234 BEDS AT THE [facility] Last Admin: 07/02/18 02:41 Dose: 420 mls/hr Insulin Aspart (Novolog) 0 unit SC Q6H KATHLEEN; Protocol Last Admin: 07/02/18 07:56 Dose: 3 units Memantine (Namenda) 10 mg PO HS COUNTS INCLUDE 234 BEDS AT THE [facility] Last Admin: 07/01/18 21:52 Dose: 10 mg Rosuvastatin Calcium (Crestor) 5 mg PO HS KATHLEEN Last Admin: 07/01/18 21:52 Dose: 5 mg Verapamil HCl (Calan Sr Tab) 180 mg PO DAILY KATHLEEN - Labs Labs: 07/02/18 07:09 07/02/18 07:09 PT 12.1 SECONDS (9.7-12.2) 06/28/18 08:07 INR 1.1 06/28/18 08:07 APTT 22.9 SECONDS (21-34) 06/26/18 05:37 - Constitutional Appears: Chronically Ill - Head Exam Head Exam: ATRAUMATIC, NORMOCEPHALIC - Eye Exam Eye Exam: EOMI - ENT Exam ENT Exam: Mucous Membranes Moist - Respiratory Exam Respiratory Exam: Clear to Ausculation Bilateral, NORMAL BREATHING PATTERN. absent: Rhonchi, Wheezes - Cardiovascular Exam Cardiovascular Exam: REGULAR RHYTHM, +S1, +S2 - GI/Abdominal Exam GI & Abdominal Exam: Soft. absent: Tenderness Additional comments: PEG in place, dressings c/d/i - Extremities Exam Extremities Exam: Normal Inspection. absent: Pedal Edema, Tenderness - Neurological Exam Neurological Exam: Alert, Awake, Oriented x3 - Psychiatric Exam Psychiatric exam: Normal Affect, Normal Mood - Skin Skin Exam: Dry, Intact Assessment and Plan - Assessment and Plan (Free Text) Assessment: 82 y o female with PMhx DM2, HTN, HLD, dementia, who presented to the ED [facility] for stroke-like symptoms. Plan: AMS, acute -Code stroke in ED -CT head 06/26: No acute intracranial hemorrhage. Chronic microvascular ischemic change. Small lacunar infarcts in the R caudate head and freya. Diffuse generalized parenchymal atrophy. -MRI brain 06/26: No acute intracranial findings -CTA head/neck 06/26: unremarkable -Echo 06/26: Normal Doppler -Was not eligible for tPA due to being outside of window for therapy and due to age -NIHSS 8 -EKG on admission: NSR at 97 bpm, prolonged QT -Seizure, aspiration precautions -RPR nonreactive -TSH, T4, B12, folate - WNL -Dr. De (Neurology) consulted, recs appreciated -1 hr EEG done at bedside - findings consistent with nonspecific allred matter changes. No seizure activity noted -ASA 81 mg PO daily -Keppra 250 mg IVPB bid (reduced from 500 BID) -Crestor 5 mg PO HS HTN -110s/60s-170s/60s Meds -Hydralazine 10 mg GT QID -Vasotec 20 mg GT daily -Verapamil ER 180 mg PO daily --> made Verapamil 40 mg IR QID as pharmacy does not carry Verapamily ER Malnutrition, chronic Palliative Care consulted, Cony Johnston APN -POLST signed and patient made DNR/DNI -Family will consider hospice down the line if status does not improve. Patient to remain DNR/DNI. GI consulted, Dr. Tao -S/p PEG, tolerated procedure well -Glucerna 1.5 start rate 20 to increase by ten Q10h with goal rate 40, free water flushes 50 mL Q6h Dementia, chronic -C/w Memantine daily -Risperidone held on admission 2/2 prolonged QT HLD, chronic -C/w rosuvastatin -Lipid panel WNL DM II, chronic -Home med Janumet held on admission -Fingersticks q6H -ISS, Hypoglycemic protocol -Hgba1c 6.7 PPX, acute -DVT: Lovenox Contact # for Patient's daughter, Ying Lo: Dispo: DNR/DNI. S/p PEG with GI, tolerated well. Pending NH placement. Case reviewed with Dr. Kenneth Lam, PGY-1 <Kenneth Avina J - Last Filed: 07/02/18 19:52> Objective - Vital Signs/Intake and Output Vital Signs (last 24 hours): Temp Pulse Resp BP Pulse Ox 98.4 F 73 20 142/69 96 07/02/18 15:00 07/02/18 15:00 07/02/18 15:00 07/02/18 15:00 07/02/18 15:00 - Medications Medications: Current Medications Aspirin (Aspirin Chewable) 81 mg PO DAILY COUNTS INCLUDE 234 BEDS AT THE [facility] Last Admin: 07/02/18 11:03 Dose: 81 mg Dextrose (Dextrose 50% Inj) 0 ml IVP .STAT PRN; Protocol PRN Reason: Hypoglycemia Protocol Dextrose (Glutose 15) 0 gm PO .ONCE PRN; Protocol PRN Reason: Hypoglycemia Protocol Enalapril Maleate (Vasotec) 20 mg GT DAILY COUNTS INCLUDE 234 BEDS AT THE [facility] Last Admin: 07/02/18 11:04 Dose: 20 mg Enoxaparin Sodium (Lovenox) 40 mg SC DAILY COUNTS INCLUDE 234 BEDS AT THE [facility] Last Admin: 07/02/18 11:03 Dose: 40 mg Famotidine (Pepcid) 20 mg IVP Q12 COUNTS INCLUDE 234 BEDS AT THE [facility] Last Admin: 07/02/18 11:04 Dose: 20 mg Glucagon (Glucagen Diagnostic Kit) 0 mg IM .STAT PRN; Protocol PRN Reason: Hypoglycemia Protocol Hydralazine HCl (Apresoline) 25 mg GT QID COUNTS INCLUDE 234 BEDS AT THE [facility] Last Admin: 07/02/18 17:59 Dose: 25 mg Levetiracetam 250 mg/ Sodium (Chloride) 102.5 mls @ 420 mls/hr IVPB Q12H KATHLEEN Last Admin: 07/02/18 14:09 Dose: 420 mls/hr Insulin Aspart (Novolog) 0 unit SC Q6H COUNTS INCLUDE 234 BEDS AT THE [facility]; Protocol Last Admin: 07/02/18 17:59 Dose: 2 units Memantine (Namenda) 10 mg PO HS COUNTS INCLUDE 234 BEDS AT THE [facility] Last Admin: 07/01/18 21:52 Dose: 10 mg Rosuvastatin Calcium (Crestor) 5 mg PO HS COUNTS INCLUDE 234 BEDS AT THE [facility] Last Admin: 07/01/18 21:52 Dose: 5 mg Verapamil HCl (Calan Tab) 40 mg GT QID COUNTS INCLUDE 234 BEDS AT THE [facility] Last Admin: 07/02/18 17:59 Dose: 40 mg - Labs Labs: 07/02/18 07:09 07/02/18 07:09 PT 12.1 SECONDS (9.7-12.2) 06/28/18 08:07 INR 1.1 06/28/18 08:07 APTT 22.9 SECONDS (21-34) 06/26/18 05:37 Attending/Attestation - Attestation I have personally seen and examined this patient.: Yes I have fully participated in the care of the patient.: Yes I have reviewed all pertinent clinical information, including history, physical exam and plan: Yes Notes (Text): 07/02/18 19:43 Patient was seen and examined at 12:30 PM. Care of this patient was gone over with resident Dr. Lam. Spoke with Labor Delivery Rn Annabel: Labor Delivery Rn at [facility] is to have a family meeting with patient's family and family agrees to take patient home after time at [facility] then will be [facility] Blood Pressure is not controlled: Hydralazine increased to 25 mg via GT Q6H Verapamil 40 mg GT Q6H Kenneth Avina D.O.
[2018-07-02] MEDS: Enoxaparin 40 mg Syringe SC SCH (11:03)
[2018-07-03] MEDS: (Novolog) Insulin Aspart, Recombinant 100 u/ml 10 ml vial SC SCH ×4 (00:55→17:24)
[2018-07-03 02:24] VITALS: RESP 18
[2018-07-03 07:25] LABS: BASO % 0.6 % (0.0-2.0); EOS # 0.1 K/uL (0.0-0.7); EOS % 2.7 % (0.0-4.0); HEMOGLOBIN 12.1 g/dL (11.0-16.0); LYMPH # 0.9 K/uL (1.0-4.3); LYMPH % 21.1 % (20.0-40.0); MEAN CELL VOLUME 99.4 fL (81.0-99.0); MEAN CORPUSCULAR HEMOGLOBIN 34.4 pg (27.0-31.0); MEAN CORPUSCULAR HGB CONC 34.6 g/dL (33.0-37.0); MEAN PLATELET VOLUME 8.2 fL (7.2-11.7); MONO # 0.4 K/uL (0.0-0.8); MONO % 8.6 % (0.0-10.0); NRBC % 0.1 % (0.0-2.0); RBC 3.52 Mil/uL (3.80-5.20); RED CELL DISTRIBUTION WIDTH 12.5 % (11.5-14.5); WHITE BLOOD COUNT 4.4 K/uL (4.8-10.8)
[2018-07-03 07:47] LABS: ALB/GLOB RATIO 1.4 (1.0-2.1); ALBUMIN 3.5 g/dL (3.5-5.0); ALT/SGPT 23 U/L (9-52); AST/SGOT 26 U/L (14-36); BLOOD UREA NITROGEN 15 mg/dL (7-17); CALCIUM 9.1 mg/dl (8.6-10.4); GFR NON-AFRICAN AMERICAN > 60
[2018-07-03 08:26] VITALS: O2SAT 96
[2018-07-03] MEDS: Enoxaparin 40 mg Syringe SC SCH (11:12)
--- NOTE | 2018-07-03 15:04 | CP.PCM.DIS ---
<CassidyMateo jacome - Last Filed: 07/03/18 15:54> Provider - Provider Date of Admission: 06/26/18 05:42 Attending physician: Kenneth Avina MD Consults: 06/26/18 04:38 Stroke Team Consult Stat Comment: poss facial droop Consulting Provider: Neurohospitalist Consulting Physician: NEUROHOSP Neurohospitalist for Consult: Kalyan Esparza Neurohospitalist for Consult: Altaf De Reason for Consult: poss facial droop 06/26/18 08:19 Palliative Care Consult Routine Comment: pmd reisner; daughter is her proxy Consulting Provider: Cony Johnston Physician Instructions: Reason For Exam: discuss goals of care/POLST form 06/26/18 10:50 Social Work Referral Routine Comment: Homemaker services at home Physician Instructions: Reason For Exam: rosalinda score 14 06/28/18 11:45 Case Management Referral Routine Comment: Physician Instructions: Reason For Exam: Retirement Placement Reason for Referral: Discharge Planning Time Spent in preparation of Discharge (in minutes): 45 Diagnosis - Discharge Diagnosis (1) Dementia Status: Acute (2) Seizure Status: Acute Hospital Course - Lab Results Lab Results: Most Recent Lab Values WBC 4.4 K/uL (4.8-10.8) L 07/03/18 07:17 RBC 3.52 Mil/uL (3.80-5.20) L 07/03/18 07:17 Hgb 12.1 g/dL (11.0-16.0) 07/03/18 07:17 Hct 35.0 % (34.0-47.0) 07/03/18 07:17 MCV 99.4 fL (81.0-99.0) H 07/03/18 07:17 MCH 34.4 pg (27.0-31.0) H 07/03/18 07:17 MCHC 34.6 g/dL (33.0-37.0) 07/03/18 07:17 RDW 12.5 % (11.5-14.5) 07/03/18 07:17 Plt Count 293 K/uL (130-400) 07/03/18 07:17 MPV 8.2 fL (7.2-11.7) 07/03/18 07:17 Neut % (Auto) 67.0 % (50.0-75.0) 07/03/18 07:17 Lymph % (Auto) 21.1 % (20.0-40.0) 07/03/18 07:17 Brooke % (Auto) 8.6 % (0.0-10.0) 07/03/18 07:17 Eos % (Auto) 2.7 % (0.0-4.0) 07/03/18 07:17 Baso % (Auto) 0.6 % (0.0-2.0) 07/03/18 07:17 Neut # (Auto) 3.0 K/uL (1.8-7.0) 07/03/18 07:17 Lymph # (Auto) 0.9 K/uL (1.0-4.3) L 07/03/18 07:17 Brooke # (Auto) 0.4 K/uL (0.0-0.8) 07/03/18 07:17 Eos # (Auto) 0.1 K/uL (0.0-0.7) 07/03/18 07:17 Baso # (Auto) 0.0 K/uL (0.0-0.2) 07/03/18 07:17 Neutrophils % (Manual) 86 % (50-75) H 06/26/18 05:37 Band Neutrophils % 1 % (0-2) 06/26/18 05:37 Lymphocytes % (Manual) 11 % (20-40) L 06/26/18 05:37 Monocytes % (Manual) 2 % (0-10) 06/26/18 05:37 Platelet Estimate Normal (NORMAL) 06/26/18 05:37 Large Platelets Present 06/26/18 05:37 [place] Cells Slight 06/26/18 05:37 PT 12.1 SECONDS (9.7-12.2) 06/28/18 08:07 INR 1.1 06/28/18 08:07 APTT 22.9 SECONDS (21-34) 06/26/18 05:37 Sodium 139 mmol/L (132-148) 07/03/18 07:17 Potassium 4.1 mmol/L (3.6-5.2) 07/03/18 07:17 Chloride 102 mmol/L (98-107) 07/03/18 07:17 Carbon Dioxide 28 mmol/L (22-30) 07/03/18 07:17 Anion Gap 13 (10-20) 07/03/18 07:17 BUN 15 mg/dL (7-17) 07/03/18 07:17 Creatinine 0.5 mg/dL (0.7-1.2) L 07/03/18 07:17 Est GFR ( Amer) > 60 07/03/18 07:17 Est GFR (Non-Af Amer) > 60 07/03/18 07:17 POC Glucose (mg/dL) 184 mg/dL (65-110) H 07/02/18 17:55 Random Glucose 205 mg/dL (65-105) H 07/03/18 07:17 Hemoglobin A1c 6.7 % (4.2-6.5) H 06/26/18 13:50 Calcium 9.1 mg/dl (8.6-10.4) 07/03/18 07:17 Phosphorus 2.5 mg/dL (2.5-4.5) 07/01/18 08:07 Magnesium 1.7 mg/dL (1.6-2.3) 07/01/18 08:07 Total Bilirubin 0.2 mg/dL (0.2-1.3) 07/03/18 07:17 AST 26 U/L (14-36) 07/03/18 07:17 ALT 23 U/L (9-52) 07/03/18 07:17 Alkaline Phosphatase 53 U/L (38-126) 07/03/18 07:17 Troponin I < 0.0120 ng/mL (0.00-0.120) 06/26/18 05:37 Total Protein 6.0 g/dL (6.3-8.3) L 07/03/18 07:17 Albumin 3.5 g/dL (3.5-5.0) 07/03/18 07:17 Globulin 2.5 gm/dL (2.2-3.9) 07/03/18 07:17 Albumin/Globulin Ratio 1.4 (1.0-2.1) 07/03/18 07:17 Triglycerides 77 mg/dL (0-149) D 06/26/18 05:37 Cholesterol 105 mg/dL (0-199) 06/26/18 05:37 LDL Cholesterol Direct 56 mg/dL (0-129) 06/26/18 05:37 HDL Cholesterol 43 mg/dL (30-70) 06/26/18 05:37 Vitamin B12 541 pg/mL (239-931) 06/26/18 13:50 Folate 17.7 ng/mL 06/26/18 13:50 Free T4 1.06 ng/dL (0.78-2.19) 06/26/18 13:50 TSH 3rd Generation 1.31 mIU/L (0.46-4.68) 06/26/18 13:50 RPR Nonreactive (NONREACTIVE) 06/26/18 13:50 Blood Type A NEGATIVE 06/26/18 05:37 Antibody Screen Negative 06/26/18 05:37 - Hospital Course Hospital Course: HPI 82 y o female with PMhx DM2, HTN, HLD, dementia, who presented to the ED BiB[facility]S for stroke-like symptoms. Pt is a poor historian 2/2 dementia and non-verbal status, so much of history was provided by pts daughter over telephone conversation. Pts daughter states that last known baseline status of patient was at 2:00 am this morning. States she awoke from sleep after hearing pt scream, went to pts bedside and found pt foaming at mouth, blood in mouth 2/2 possibly biting her tongue, and demonstrating twisting-like movements with her body. Pts daughter also noticed at time that pt had new-onset L-sided facial droop. Pts daughter immediately called 911 and pt was thus brought to the ED. Denies hx of this ever occuring before. Pt has been living at home with daughter for past 3 years. Denies any recent hospitalizations or falls. Denies recent URI symptoms or pt being sick recently with a cold. Pt is usually helped by home health aide during the day until pts daughter comes home from work at night. Pt is unable to ambulate at baseline and needs assistance ambulating around home. Pt also has hx of urinary incontinence and wears diapers. Pts daughter denies pt c/o chest pain, sob, n/v/d/c, abd pain, or other symptoms. Denies foul- smelling urine or stool. Pt is also only able to eat puree-like foods at home as per pts daughter, states she sometimes gets food stuck in her cheeks. Hospitalization Patient was hospitalized for presumed change in mental status requiring stroke and seizure workup. Patient is known to have severe dementia at baseline. Neurology was consulted, Dr. De. Patient had CT of the head performed, as well as MRI of the brain, CTA of the head and neck, and EEG to rule out seizure activity. Patient was started on Keppra IV for seizure prevention. EEG revealed abnormal activity consistent with nonspecific rangel matter changes. MRI and CT were consistent with chronic changes. Otherwise, all studies were negative for signs of acute pathology. Per Dr. De, patient to be continued on Keppra due to possible seizure activity. Per family wishes, GI was consulted for PEG tube placement for long-term feeds. GI saw patient (Dr. Tao) and patient had PEG placed and started on tube feeds. Patient medically was medically stable and remained hospitalized until case management was able to find [facility] availability. Patient discharged to [facility] to continue tube feeds via PEG. Imaging -CT head 06/26: No acute intracranial hemorrhage. Chronic microvascular ischemic change. Small lacunar infarcts in the R caudate head and freya. Diffuse generalized parenchymal atrophy. -MRI brain 06/26: No acute intracranial findings -CTA head/neck 06/26: unremarkable Please note this is just a summary of this hospital course. For details please refer to complete medical records. Discharge Exam - Head Exam Head Exam: ATRAUMATIC, NORMOCEPHALIC - Eye Exam Eye Exam: EOMI - ENT Exam ENT Exam: Mucous Membranes Moist - Respiratory Exam Respiratory Exam: Clear to PA & Lateral. absent: Rhonchi, Wheezes - Cardiovascular Exam Cardiovascular Exam: REGULAR RHYTHM, +S1, +S2 - GI/Abdominal Exam GI & Abdominal Exam: Normal Bowel Sounds, Soft Additional comments: PEG in place with dressings c/d/i - Extremities Exam Extremities exam: normal inspection - Neurological Exam Additional comments: Nonverbal, minimally responsive at baseline - Psychiatric Exam Psychiatric exam: Flat Affect - Skin Skin Exam: Dry, Intact Discharge Plan - Follow Up Plan Condition: FAIR Disposition: REHAB FACILITY/REHAB UNIT Instructions: Seizures, Adult (DC), Upper GI Endoscopy (DC), Percutaneous Endoscopic Gastrostomy (DC) Additional Instructions: Patient cleared for discharge to [facility] per primary team. Patient is to continue taking home medications as prescribed: -Verapamil ER 180 mg one tab via G-tube daily at 8am -Janumet 50-500 one tab via G-tube daily at 8am -Namenda HCl ER (Memantine) 7mg one cap via G-tube daily at 8am -Calcium Carbonate one tab via G-tube daily at 8am -Lipitor 10 mg one tab via G-tube daily at 8am -Aspirin 81 mg one tab via G-tube daily at 8am Enalapril 20 mg one tab via G-tube daily at 8am -Hydralazine 25 mg one tab via G-tube daily at 8am -Please discontinue Respirdal given EKG finding of prolonged QT interval. -Continue tube feeds via PEG as follows: --Glucerna 1.5 for a goal of 40 mL/hour --Free water flushes of 50mL every 6 hours -Please make sure that patient is turned and repositioned every two hours Patient should please return to ER if symptoms recur or worsen. <Kenneth Avina - Last Filed: 07/03/18 18:33> Provider - Provider Date of Admission: 06/26/18 05:42 Attending physician: Kenneth Avina MD Consults: 06/26/18 04:38 Stroke Team Consult Stat Comment: poss facial droop Consulting Provider: Neurohospitalist Consulting Physician: NEUROHOSP Neurohospitalist for Consult: Kalyan Esparza Neurohospitalist for Consult: Altaf De Reason for Consult: poss facial droop 06/26/18 08:19 Palliative Care Consult Routine Comment: pmd reisner; daughter is her proxy Consulting Provider: Cony Johnston Physician Instructions: Reason For Exam: discuss goals of care/POLST form 06/26/18 10:50 Social Work Referral Routine Comment: Homemaker services at home Physician Instructions: Reason For Exam: rosalinda score 14 06/28/18 11:45 Case Management Referral Routine Comment: Physician Instructions: Reason For Exam: Retirement Placement Reason for Referral: Discharge Planning Hospital Course - Lab Results Lab Results: Most Recent Lab Values WBC 4.4 K/uL (4.8-10.8) L 07/03/18 07:17 RBC 3.52 Mil/uL (3.80-5.20) L 07/03/18 07:17 Hgb 12.1 g/dL (11.0-16.0) 07/03/18 07:17 Hct 35.0 % (34.0-47.0) 07/03/18 07:17 MCV 99.4 fL (81.0-99.0) H 07/03/18 07:17 MCH 34.4 pg (27.0-31.0) H 07/03/18 07:17 MCHC 34.6 g/dL (33.0-37.0) 07/03/18 07:17 RDW 12.5 % (11.5-14.5) 07/03/18 07:17 Plt Count 293 K/uL (130-400) 07/03/18 07:17 MPV 8.2 fL (7.2-11.7) 07/03/18 07:17 Neut % (Auto) 67.0 % (50.0-75.0) 07/03/18 07:17 Lymph % (Auto) 21.1 % (20.0-40.0) 07/03/18 07:17 Brooke % (Auto) 8.6 % (0.0-10.0) 07/03/18 07:17 Eos % (Auto) 2.7 % (0.0-4.0) 07/03/18 07:17 Baso % (Auto) 0.6 % (0.0-2.0) 07/03/18 07:17 Neut # (Auto) 3.0 K/uL (1.8-7.0) 07/03/18 07:17 Lymph # (Auto) 0.9 K/uL (1.0-4.3) L 07/03/18 07:17 Brooke # (Auto) 0.4 K/uL (0.0-0.8) 07/03/18 07:17 Eos # (Auto) 0.1 K/uL (0.0-0.7) 07/03/18 07:17 Baso # (Auto) 0.0 K/uL (0.0-0.2) 07/03/18 07:17 Neutrophils % (Manual) 86 % (50-75) H 06/26/18 05:37 Band Neutrophils % 1 % (0-2) 06/26/18 05:37 Lymphocytes % (Manual) 11 % (20-40) L 06/26/18 05:37 Monocytes % (Manual) 2 % (0-10) 06/26/18 05:37 Platelet Estimate Normal (NORMAL) 06/26/18 05:37 Large Platelets Present 06/26/18 05:37 [place] Cells Slight 06/26/18 05:37 PT 12.1 SECONDS (9.7-12.2) 06/28/18 08:07 INR 1.1 06/28/18 08:07 APTT 22.9 SECONDS (21-34) 06/26/18 05:37 Sodium 139 mmol/L (132-148) 07/03/18 07:17 Potassium 4.1 mmol/L (3.6-5.2) 07/03/18 07:17 Chloride 102 mmol/L (98-107) 07/03/18 07:17 Carbon Dioxide 28 mmol/L (22-30) 07/03/18 07:17 Anion Gap 13 (10-20) 07/03/18 07:17 BUN 15 mg/dL (7-17) 07/03/18 07:17 Creatinine 0.5 mg/dL (0.7-1.2) L 07/03/18 07:17 Est GFR ( Amer) > 60 07/03/18 07:17 Est GFR (Non-Af Amer) > 60 07/03/18 07:17 POC Glucose (mg/dL) 184 mg/dL (65-110) H 07/03/18 16:17 Random Glucose 205 mg/dL (65-105) H 07/03/18 07:17 Hemoglobin A1c 6.7 % (4.2-6.5) H 06/26/18 13:50 Calcium 9.1 mg/dl (8.6-10.4) 07/03/18 07:17 Phosphorus 2.5 mg/dL (2.5-4.5) 07/01/18 08:07 Magnesium 1.7 mg/dL (1.6-2.3) 07/01/18 08:07 Total Bilirubin 0.2 mg/dL (0.2-1.3) 07/03/18 07:17 AST 26 U/L (14-36) 07/03/18 07:17 ALT 23 U/L (9-52) 07/03/18 07:17 Alkaline Phosphatase 53 U/L (38-126) 07/03/18 07:17 Troponin I < 0.0120 ng/mL (0.00-0.120) 06/26/18 05:37 Total Protein 6.0 g/dL (6.3-8.3) L 07/03/18 07:17 Albumin 3.5 g/dL (3.5-5.0) 07/03/18 07:17 Globulin 2.5 gm/dL (2.2-3.9) 07/03/18 07:17 Albumin/Globulin Ratio 1.4 (1.0-2.1) 07/03/18 07:17 Triglycerides 77 mg/dL (0-149) D 06/26/18 05:37 Cholesterol 105 mg/dL (0-199) 06/26/18 05:37 LDL Cholesterol Direct 56 mg/dL (0-129) 06/26/18 05:37 HDL Cholesterol 43 mg/dL (30-70) 06/26/18 05:37 Vitamin B12 541 pg/mL (239-931) 06/26/18 13:50 Folate 17.7 ng/mL 06/26/18 13:50 Free T4 1.06 ng/dL (0.78-2.19) 06/26/18 13:50 TSH 3rd Generation 1.31 mIU/L (0.46-4.68) 06/26/18 13:50 RPR Nonreactive (NONREACTIVE) 06/26/18 13:50 Blood Type A NEGATIVE 06/26/18 05:37 Antibody Screen Negative 06/26/18 05:37 Attending/Attestation - Attestation I have personally seen and examined this patient.: Yes I have fully participated in the care of the patient.: Yes I have reviewed all pertinent clinical information, including history, physical exam and plan: Yes Notes (Text): 07/03/18 18:10 Patient was seen and examined at 10:00 AM 07/03/18 Care of this patient and discharge instructions were gone over with the resident Dr. Faye Escobar Also on exam: NO ulcerations were noted on any of the sampson prominences Peg Tube Insertion site without any signs of cellulitis Kenneth Avina D.O. 07/03/18 18:11
[2018-07-03 16:23] VITALS: BP 161/69; PULSE 78; TEMP 98
== END 2018-07-03 18:13 | DRG 101 ==
LOC: C.ER 04:24 → C.6T 05:42
PROVIDERS: ADMIT Hospitalist; ATTEND Family Medicine
PROC: 0DH68UZ Insertion of Feeding Device into Stomach, Via Natural or Artificial Opening Endoscopic (ICD-10-PCS; principal; 2018-06-28 12:20)
PROC: 3E0G76Z Introduction of Nutritional Substance into Upper GI, Via Natural or Artificial Opening (ICD-10-PCS; 2018-06-29)
DX: R56.9 Unspecified convulsions (principal); E46 Unspecified protein-calorie malnutrition; F02.80 Dementia in other diseases classified elsewhere, unspecified severity, without behavioral disturbance, psychotic disturbance, mood disturbance, and anxiety; E11.9 Type 2 diabetes mellitus without complications; G30.9 Alzheimer's disease, unspecified; I10 Essential (primary) hypertension; I45.81 Long QT syndrome; R29.810 Facial weakness; R62.7 Adult failure to thrive; K29.70 Gastritis, unspecified, without bleeding; R45.1 Restlessness and agitation; R32 Unspecified urinary incontinence; E78.5 Hyperlipidemia, unspecified; E78.00 Pure hypercholesterolemia, unspecified; Z66 Do not resuscitate; Z51.5 Encounter for palliative care; Z68.22 Body mass index [BMI] 22.0-22.9, adult; Z85.42 Personal history of malignant neoplasm of other parts of uterus; Z79.899 Other long term (current) drug therapy